=== PATIENT | male | born 1950 | race Caucasian/White ===

== ENCOUNTER 2018-09-12 09:27 | Inpatient (IN) | payer MEDICARE ==
[2018-09-11 15:02] LABS: BASOPHILS % 0.4 % (0.0-1.0); EOSINOPHILS # (AUTO) 0.1 (0.0-0.4); EOSINOPHILS % 0.7 % (0.0-6.0); HEMATOCRIT 41.7 % (38.2-49.6); HEMOGLOBIN 14.6 g/dL (14.0-18.0); LYMPHOCYTES # (AUTO) 0.6 (1.0-3.2); MEAN CORPUSCULAR HEMOGLOBIN 32.4 pg (28-32); MEAN CORPUSCULAR VOLUME 92.7 fL (81-99); MONOCYTES # (AUTO) 0.7 (0.2-0.8); MONOCYTES % 7.5 % (4.4-11.3); NEUTROPHILS # (AUTO) 7.8 (2.1-6.9); PLATELET COUNT 517 x10e3/uL (140-360); RED CELL DISTRIBUTION WIDTH 13.8 % (11.7-14.4)
[2018-09-11 15:15] LABS: INR 1.01; PROTHROMBIN TIME 14.2 seconds (11.9-14.5)
[2018-09-11 15:21] LABS: ALANINE AMINOTRANSFERASE 34 IU/L (0-55); ALBUMIN 4.3 g/dL (3.5-5.0); ALKALINE PHOSPHATASE 47 IU/L (40-150); ANION GAP 13.8 mmol/L (8-16); BLOOD UREA NITROGEN 12 mg/dL (7-26); BUN/CREATININE RATIO 13 (6-25); CALCIUM 9.4 mg/dL (8.4-10.2); CARBON DIOXIDE 30 mmol/L (22-29); CHLORIDE 91 mmol/L (98-107); EST GLOMERULAR FILTRATION RATE > 60 ML/MIN (60-); GLUCOSE 100 mg/dL (74-118); POTASSIUM 3.8 mmol/L (3.5-5.1); SODIUM 131 mmol/L (136-145)
[2018-09-12] VITALS (7 sets, daily range): BP systolic 115–153; BP diastolic 62–73
[~2018-09-12] VITALS: Ht 185.4 cm; Wt 109.3 kg
[~2018-09-12 09:27] MED LIST: ACETAMINOPHEN650 M3 PO; AMLODIPINE BESYL5 MG PO; ASPIR 8181 MG PO; HYDROCHLOROTHIA25 MG PO; LEVOTHYROXINE75 MCG PO
--- OUTSIDE RECORDS SUMMARY | 2018-09-12 09:30 | XMS REPORT ---
Author Author [facility] Address Unknown Phone Unavailable Care Team Providers Care Laundry Equipment Operator Name Role Phone Unavailable Unavailable Problems This patient has no known problems. Allergies, Adverse Reactions, Alerts This patient has no known allergies or adverse reactions. Medications This patient has no known medications. Encounters Start Date/Time End Date/Time Encounter Type Admission Type Attending [facility] Care Department Encounter ID 2019-04-10 00:00:00 2019-04-10 00:00:00 Outpatient [facility] [id number] 2018-11-01 00:00:00 2018-11-01 00:00:00 Outpatient [facility] [id number] 2018-10-04 00:00:00 2018-10-04 00:00:00 Outpatient [facility] [id number] 2018-08-29 12:36:43 2018-08-29 12:36:43 Outpatient [facility] [id number] 2018-08-29 11:56:32 2018-08-29 11:56:32 Outpatient [facility] [id number] 2018-08-19 00:00:00 2018-08-19 00:00:00 Outpatient [facility] [id number] 2018-08-02 00:00:00 2018-08-02 00:00:00 Outpatient [facility] [id number] 2018-08-01 11:11:20 2018-08-01 11:11:20 Outpatient [facility] [id number] 2018-07-26 08:37:24 2018-07-26 08:37:24 Outpatient [facility] [id number] 2018-07-19 00:00:00 2018-07-19 00:00:00 Outpatient [facility] [id number] 2018-05-28 14:49:16 2018-05-28 14:49:16 Outpatient [facility] [id number] 2018-05-23 09:43:07 2018-05-23 09:43:07 Outpatient [facility] [id number] 2018-04-23 15:10:19 2018-04-23 15:10:19 Outpatient [facility] [id number] 2018-04-12 09:44:50 2018-04-12 09:44:50 Outpatient [facility] [id number] 2018-04-11 09:29:30 2018-04-11 09:29:30 Outpatient [facility] [id number] 2018-03-06 14:54:35 2018-03-06 14:54:35 Emergency [facility] [id number] 2018-03-06 00:00:00 2018-03-06 00:00:00 Outpatient [facility] [id number] 2018-02-13 16:00:57 2018-02-13 16:00:57 Outpatient [facility] [id number] 2018-02-12 11:09:50 2018-02-12 11:09:50 Outpatient [facility] [id number] 2018-01-07 00:00:00 2018-01-07 00:00:00 Outpatient [facility] [id number] 2017-12-28 08:37:59 2017-12-28 08:37:59 Outpatient [facility] [id number] 2017-12-25 00:00:00 2017-12-25 00:00:00 Outpatient [facility] [id number] 2017-10-25 11:56:46 2017-10-25 11:56:46 Outpatient [facility] [id number] 2017-10-12 15:05:30 2017-10-12 15:05:30 Outpatient [facility] [id number] 2017-10-10 07:59:38 2017-10-10 07:59:38 Outpatient [facility] [id number] 2017-09-18 16:16:02 2017-09-18 16:16:02 Outpatient [facility] [id number] 2017-09-03 13:30:50 2017-09-03 13:30:50 Outpatient [facility] [id number] 2017-08-21 00:00:00 2017-08-21 00:00:00 Outpatient [facility] [id number] 2017-08-09 09:33:35 2017-08-09 09:33:35 Outpatient [facility] [id number] 2017-08-09 00:00:00 2017-08-09 00:00:00 Outpatient [facility] [id number] 2017-08-07 00:00:00 2017-08-07 00:00:00 Outpatient [facility] [id number] 2017-07-18 15:49:06 2017-07-18 15:49:06 Outpatient [facility] [id number] 2017-06-11 08:39:47 2017-06-11 08:39:47 Outpatient [facility] [id number] 2017-05-09 15:05:46 2017-05-09 15:05:46 Outpatient [facility] [id number] 2017-04-19 00:00:00 2017-04-19 00:00:00 Outpatient [facility] [id number] 2017-04-05 00:00:00 2017-04-05 00:00:00 Outpatient [facility] [id number] 2017-03-14 13:28:45 2017-03-14 13:28:45 Outpatient [facility] [id number] 2017-03-14 00:00:00 2017-03-14 00:00:00 Outpatient [facility] [id number] 2017-02-07 08:05:16 2017-02-07 08:05:16 Outpatient [facility] [id number] 2017-01-18 13:45:21 2017-01-18 13:45:21 Outpatient [facility] [id number] 2017-01-18 00:00:00 2017-01-18 00:00:00 Outpatient [facility] [id number] 2017-01-10 14:43:10 2017-01-10 14:43:10 Outpatient [facility] [id number] 2017-01-03 12:33:58 2017-01-03 12:33:58 Outpatient [facility] [id number] 2016-12-28 15:27:46 2016-12-28 15:27:46 Outpatient [facility] [id number]
--- OUTSIDE RECORDS SUMMARY | 2018-09-12 09:30 | XMS REPORT | Clinical Summary ---
Author Author [facility] Organization [facility] Address Unknown Phone Unavailable Care Team Providers Care Stamp Clerk Name Role Phone Kendell Nguyen MD PCP Christiana Melendez DDS 6 Allergies Comments Active Allergy Reactions Severity Noted Date Nortriptyline 03/06/2018 Medications End Date Status Medication Sig Dispensed Refills Start Date Active ASPIRIN 81 MG TAB take 1 tablet 0 (81 mg) by oral route once daily Active carbamide peroxide Instill 5 30 mL 0 (DEBROX) 6.5 % Drops in each 8 DropIndications: Impacted ear 2 times cerumen of right ear daily. Active loratadine (CLARITIN) 10 Take 1 tablet 90 tablet 1 mg tabletIndications: by mouth 8 Seasonal allergic daily Prn rhinitis due to pollen congestion. Active fluticasone (FLONASE) 50 Use 1 [place] 16 g 3 mcg/actuation nasal in each 8 sprayIndications: nostril daily Seasonal allergic Prn rhinitis due to pollen congestion. Active amLODIPine (NORVASC) 5 mg Take 1 tablet 90 tablet 2 tabletIndications: by mouth 8 Essential hypertension, daily. Issue of repeat prescription for medication 04/23/2019 Active hydroCHLOROthiazide Take 1 tablet 90 tablet 2 (HYDRODIURIL) 25 mg by mouth 8 tabletIndications: daily. Essential hypertension, Issue of repeat prescription for medication Active levothyroxine (SYNTHROID) Take 1 tablet 90 tablet 2 75 mcg tabletIndications: by mouth 8 Acquired hypothyroidism, every Issue of repeat morning, prescription for before medication breakfast. Active triamcinolone (TRIDERM) Apply to 80 g 3 0.1 % topical affected area 8 creamIndications: 2 times daily Varicose veins of both Prn itching. lower extremities, Issue of repeat prescription for medication Active amLODIPine (NORVASC) 2.5 Take 1 tablet 90 tablet 3 mg tabletIndications: by mouth 8 Essential hypertension daily along with 5 mg dose for HTN. Active ketoconazole (NIZORAL) 2 Apply to 120 mL 6 % shampooIndications: affected area 8 Seborrheic dermatitis of daily, as scalp needed for Itching. Active ketoconazole (NIZORAL) 2 Apply to 30 g 3 % topical affected area 9 creamIndications: Fungal 2 times dermatitis daily. 07/19/2018 Discontinued ketoconazole (NIZORAL) 2 Apply to 120 mL 6 % shampooIndications: affected area 7 Seborrheic dermatitis of daily, as scalp needed for Itching. 04/23/2018 Discontinued triamcinolone (TRIDERM) Apply to 80 g 3 0.1 % topical affected area 7 creamIndications: 2 times daily Varicose veins of both Prn itching. lower extremities 04/23/2018 Discontinued hydroCHLOROthiazide Take 1 tablet 90 tablet 2 (HYDRODIURIL) 25 mg by mouth 8 tabletIndications: daily. Essential hypertension 04/23/2018 Discontinued amLODIPine (NORVASC) 5 mg Take 1 tablet 90 tablet 2 tabletIndications: by mouth 8 Essential hypertension daily. 04/23/2018 Discontinued levothyroxine (SYNTHROID) Take 1 tablet 90 tablet 2 75 mcg tabletIndications: by mouth 8 Acquired hypothyroidism every morning, before breakfast. 08/29/2018 Discontinued ketoconazole (NIZORAL) 2 Apply to 30 g 3 % topical affected area 8 creamIndications: Fungal 2 times dermatitis daily. 09/18/2017 Discontinued amoxicillin-clavulanate Take 1 tablet 14 tablet 0 (AUGMENTIN) 875-125 mg by mouth 2 8 per tabletIndications: times daily Cellulitis and abscess of for 7 days. leg, except foot 04/23/2018 Discontinued cadexomer iodine Apply to 40 g 2 (IODOSORB) 0.9 % topical affected area 8 gelIndications: Venous daily as ulcer of right lower needed for extremity with varicose Wound Care. veins 07/19/2018 Discontinued amLODIPine (NORVASC) 2.5 Take 1 tablet 90 tablet 3 10/25/201 mg tabletIndications: by mouth 8 Essential hypertension daily along with 5 mg dose for HTN. 01/02/2018 predniSONE (DELTASONE) 50 Take 1 tablet 5 tablet 0 12/28/201 mg tabletIndications: by mouth 8 Acute serous otitis media daily for 5 of left ear, recurrence days. not specified 08/29/2018 Discontinued ciclopirox (PENLAC) 8 % Apply to the 0 external solution affected toe nails as directed . Active Problems Problem Noted Date Prediabetes 08/29/2018 Seborrheic dermatitis of scalp 07/19/2018 Exercise counseling for Above Normal BMI Only! 04/23/2018 Occult blood positive stool 02/16/2018 Benign non-nodular prostatic hyperplasia without lower urinary tract 05/19/2016 symptoms Facial abscess 05/15/2016 Chronic pain of right heel 09/01/2015 Callus 07/09/2015 Onychomycosis 07/09/2015 BMI 29.0-29.9,adult 03/02/2015 Dietary counseling 03/02/2015 Asymptomatic varicose veins 01/11/2015 Fracture of toe 06/02/2014 Gingivitis 05/04/2014 Dental examination 08/26/2013 Gingival recession 06/06/2013 Periodontitis 04/11/2013 Varicose veins of both lower extremities 01/16/2013 Nasal obstruction 03/20/2011 Cerumen impaction 03/20/2011 Hearing loss 03/20/2011 Acquired deviated nasal septum 03/20/2011 Elevated fasting blood sugar 01/17/2011 Nasal septal deviation 12/01/2010 Chronic pain 10/04/2009 Hypothyroidism 10/03/2006 HTN (hypertension) 07/05/2006 Drug side effects Overview: nortriptyline Encounters Care Team Description Date Type Specialty Kendell Nguyen MD Essential hypertension (Primary Dx); Fungal dermatitis; Acquired hypothyroidism; Benign non-nodular prostatic hyperplasia without lower urinary tract symptoms; Varicose veins of both lower extremities, unspecified whether complicated; Prediabetes 08/29/2018 Office Visit Family Practice 08/29/2018 Travel Katerine Mabry NP Otalgia of left ear (Primary Dx); Dietary counseling for Above / Below Normal BMI; Exercise counseling for Above Normal BMI Only!; Impacted cerumen of left ear 07/26/2018 Office Visit Family Practice Kendell Nguyen MD Essential hypertension (Primary Dx); Seborrheic dermatitis of scalp; Acquired hypothyroidism; Varicose veins of both lower extremities, unspecified whether complicated 07/19/2018 Office Visit Family Practice 07/19/2018 Travel Kendell Nguyen MD 05/28/2018 Ancillary Radiology Procedure Arabella Villagran MD Arthralgia of left lower leg (Primary Dx) 05/23/2018 Office Visit Physical Medicine and Rehab Kendell Nguyen MD Essential hypertension (Primary Dx); Dietary counseling for Above / Below Normal BMI; Exercise counseling for Above Normal BMI Only!; Acquired hypothyroidism; Varicose veins of both lower extremities; Occult blood positive stool; Issue of repeat prescription for medication 04/23/2018 Office Visit Family Practice Phillip Padilla OT Varicose veins of both lower extremities (Primary Dx) 04/12/2018 Therapy Occupational Therapy Arabella Villagran MD Chronic pain of left knee (Primary Dx) 04/11/2018 Office Visit Physical Medicine and Rehab Delvis Olea MD Varicose vein of scrotum (Primary Dx) 03/06/2018 Emergency Emergency Medicine Kacie Man RN 03/05/2018 Nurse Triage Kendell Nguyen MD Occult blood positive stool (Primary Dx) 02/16/2018 Orders Only Family Practice Kendell Nguyen MD Screen for colon cancer 02/13/2018 Orders Only [facility] Kendell Nguyen MD Essential hypertension (Primary Dx); Acquired hypothyroidism; Varicose veins of both lower extremities; Screen for colon cancer; Seborrheic dermatitis, unspecified; Seasonal allergic rhinitis due to pollen 02/12/2018 Office Visit Family Practice Shahram Escudero MD Impacted cerumen of right ear (Primary Dx); Acute serous otitis media of left ear, recurrence not specified 12/28/2017 Office Visit Family Practice Maddie Sadler, RN 12/27/2017 Nurse Triage Kendell Nguyen MD Essential hypertension (Primary Dx) 10/25/2017 Office Visit Family Practice Michelle Mello OT [place], [place], OT Varicose veins of both lower extremities (Primary Dx) 10/12/2017 Therapy Occupational Therapy Dana Goss PT Varicose veins of both lower extremities (Primary Dx) 10/10/2017 Therapy Physical Therapy Kendell Nguyen MD Essential hypertension (Primary Dx); Varicose veins of both lower extremities; Venous ulcer of right lower extremity with varicose veins 09/18/2017 Office Visit Family Practice after 09/11/2017 Immunizations Name Dates Previously Given Next Due Influenza <Unspecified> 05/23/2018, 04/24/2017 Influenza Vaccine 05/15/2016, 05/15/2014, 06/20/2012 PPV 23 Pneumococcal 05/15/2016 Polysaccaride Pneumococcal 13-valent 03/02/2015 conj 0.5 mL injection Tdap Tetanus, diphtheria, 05/15/2014 acellular pertussis Vaccine Family History Medical History Relation Name Comments Cancer Father Pulmonary Father Heart Mother Hypertension Mother Stroke Mother Hypothyroid Sister Relation Name Status Comments Brother Alive Brother Alive Brother Brother Father Maternal Grandfather Maternal Grandmother Mother Paternal Grandfather Paternal Grandmother Sister Alive Sister Social History Date Tobacco Use Types Packs/Day Years Used Former Smoker Smokeless Tobacco: Never Used Tobacco Cessation: Counseling Given: No Alcohol Use Drinks/Week oz/Week Comments No 0 Standard 0.0 drinks or equivalent Sex Assigned at Date Recorded Not on file Industry Job Start Date Occupation Not on file Not on file Not on file Travel End Travel History Travel Start No recent travel history available. Last Filed Vital Signs Time Taken Vital Sign Reading 08/29/2018 11:59 AM [facility] Blood Pressure 142/66 08/29/2018 11:59 AM [facility] Pulse 60 08/29/2018 11:59 AM [facility] Temperature 37 C (98.6 F) 08/29/2018 11:59 AM [facility] Respiratory Rate 18 03/06/2018 3:35 PM CDT Oxygen Saturation 95% - Inhaled Oxygen - Concentration 08/29/2018 11:59 AM [facility] Weight 112.9 kg (249 lb) 08/29/2018 11:59 AM [facility] Height 188 cm (6' 2") 08/29/2018 11:59 AM [facility] Body Mass Index 31.97 Plan of Treatment Care Team Description Date Type Specialty Michelle Mello OT OCCUPATIONAL THERAPY [facility] 10/04/2018 Therapy Occupational Therapy [facility]agran [facility] [address] [place] [address] [phone] 1 year f/u 04/10/2019 Office Visit Physical Medicine and Rehab Health Maintenance Due Date Last Done Comments Colonoscopy 5yr 06/19/2023 06/19/2018 (Previously completed - External) IMM Pneumococcal Age 65 Completed 05/15/2015 and Up IMM Influenza Seasonal Completed 05/23/2018, 04/24/2017 Oct to October (>/=19 yrs) Procedures Comments Procedure Name Priority Date/Time Associated Diagnosis PSA Routine 08/29/2018 Benign non-nodular 12:34 PM [facility] prostatic hyperplasia without lower urinary tract symptoms CBC/DIFF Routine 08/01/2018 Essential hypertension 11:04 AM [facility] TSH Routine 08/01/2018 Acquired hypothyroidism 11:04 AM [facility] HEMOGLOBIN A1C Routine 08/01/2018 Essential hypertension 11:04 AM [facility] LIVER PROFILE Routine 08/01/2018 Essential hypertension 11:04 AM [facility] BASIC METABOLIC PANEL Routine 08/01/2018 Essential hypertension 11:04 AM [facility] LIPID PROFILE Routine 08/01/2018 Essential hypertension 11:04 AM [facility] XRAY HIP BILATERAL 2 Routine 05/28/2018 Arthralgia of left lower VIEWS AND AP PELVIS 3:02 PM CDT leg XRAY KNEE 3 VIEWS Routine 05/28/2018 Arthralgia of left lower (ROUTINE W/ WT BEARING 3:02 PM CDT leg AP/LAT/SUN) OCCULT BLOOD ICT Routine 02/13/2018 Screen for colon cancer 3:55 PM CDT after 09/11/2017 Results * PSA (08/29/2018 12:34 PM [facility]) PSA 1.54 <4.1 ng/mL BT MAIN-STATION 1 Specimen Blood Performing Organization Address City/State/Zipcode Phone Number [facility]IN-ST[facility] 1 * HEMOGLOBIN A1C (08/01/2018 11:04 AM [facility]) Hemoglobin A1c 5.8 4.3 - 6.1 % BT DIAGNOSTIC IMMUNOLOGY Est Average 119.8 mg/dL BT DIAGNOSTIC Gluc IMMUNOLOGY Specimen Blood Performing Organization Address [facility] Phone Number [facility] * TSH (08/01/2018 11:04 AM [facility]) TSH 2.43 0.57 - 3.74 uIU/mL BT MAIN-STATION 1 Specimen Blood Performing Organization Address [facility] Phone [facility] * LIVER PROFILE (08/01/2018 11:04 AM [facility]) T Protein 6.4 6.0 - 8.3 g/dL BT MAIN-STATION 1 Albumin 4.3 4.2 - 5.5 g/dL BT MAIN-STATION 1 T Bilirubin 0.9 0.2 - 1.2 mg/dL BT MAIN-STATION 1 Alk Phos 55 34 - 104 U/L BT MAIN-STATION 1 AST 20 13 - 39 U/L BT MAIN-STATION 1 ALT 23 7 - 52 U/L BT MAIN-STATION 1 D Bilirubin 0.2 0.0 - 0.2 mg/dL BT MAIN-STATION 1 Specimen Blood Performing Organization Address [facility] Phone Number [facility] * LIPID PROFILE (08/01/2018 11:04 AM [facility]) Cholesterol 137 mg/dL BT [facility]ATION Comment: 1 REFERENCE RANGE: Desirable: <200 mg/dL Borderline: 200-240 mg/dL High Risk: >240 mg/dL Triglyceride 69 <150 mg/dL BT MAIN-STATION Comment: 1 REFERENCE RANGE: Normal: <150 mg/dL Borderline High: 150-199 mg/dL High: 200-499 mg/dL Very High: >jq=695 mg/dL HDL 56 mg/dL BT MAIN-STATION Comment: 1 Increased CHD risk: <40 mg/dL Decreased CHD risk: >60 mg/dL LDL 67 mg/dL BT MAIN-STATION Comment: 1 REFERENCE RANGE: Optimal: <100 mg/dL Near Optimal: 100-129 mg/dL Borderline High: 130-159 mg/dL High: 160-189 mg/dL Very High: >gn=563 mg/dL Specimen Blood Performing Organization Address [facility]/Zipcode Phone Number [facility] BT MAIN-STATION 1 * CBC/DIFF (08/01/2018 11:04 AM [facility]) WBC 7.7 4.5 - 12.0 K/uL BT MAIN-STATION 2 RBC 4.44 (L) 4.60 - 6.20 M/uL BT MAIN-STATION 2 Hemoglobin 14.1 14.0 - 18.0 g/dL BT MAIN-STATION 2 Hematocrit 42.6 40.0 - 54.0 % BT MAIN-STATION 2 MCV 96 (H) 82 - 92 fL BT MAIN-STATION 2 MCH 31.8 (H) 27.0 - 31.0 pg BT MAIN-STATION 2 MCHC 33.1 32.0 - 36.0 g/dL BT MAIN-STATION 2 RDW 48.9 (H) 35.1 - 43.9 fL BT MAIN-STATION 2 Platelet 511 (H) 150 - 400 K/uL BT MAIN-STATION 2 Mean Platelet 10.3 9.4 - 12.4 fL BT MAIN-STATION Volume 2 Percent NRBC 0.0 BT MAIN-STATION 2 Absolute NRBC 0.00 BT MAIN-STATION 2 Neutrophil 79.1 (H) 34.0 - 67.9 % BT MAIN-STATION 2 Lymphocyte 9.2 (L) 21.8 - 50.0 % BT MAIN-STATION 2 Monocyte 8.7 5.3 - 12.0 % BT MAIN-STATION 2 Eosinophil 2.3 0.8 - 5.0 % BT MAIN-STATION 2 Basophil 0.4 0.2 - 1.2 % BT MAIN-STATION 2 Pct Immat Gran 0.3 0.0 - 0.5 BT MAIN-STATION 2 Neutrophil, Abs 6.11 (H) 1.78 - 5.36 K/uL BT MAIN-STATION 2 Lymphocyte, Abs 0.71 (L) 1.32 - 3.57 K/uL BT MAIN-STATION 2 Monocyte, Abs 0.67 0.30 - 0.82 K/uL BT MAIN-STATION 2 Eosinophil, Abs 0.18 0.04 - 0.54 K/uL BT MAIN-STATION 2 Basophil, Abs 0.03 0.01 - 0.08 K/uL BT MAIN-STATION 2 Absol Immat 0.02 0.00 - 0.03 K/uL BT MAIN-STATION Gran 2 Specimen Blood Performing Organization Address City/State/Zipcode Phone Number [facility] 2 * BASIC METABOLIC PANEL (08/01/2018 11:04 AM [facility]) CO2 32 (H) 21 - 31 mmol/L BT MAIN-STATION 1 Chloride 93 (L) 98 - 107 mmol/L BT MAIN-STATION 1 Potassium 4.5 3.5 - 5.1 mmol/L BT MAIN-STATION 1 Sodium 135 (L) 136 - 145 mmol/L BT MAIN-STATION 1 Glucose 95 70 - 110 mg/dL BT MAIN-STATION 1 Urea Nitrogen 16 7 - 25 mg/dL BT MAIN-[facility]ATION 1 Creatinine 0.90 0.7 - 1.3 mg/dL BT MAIN-STATION 1 Anion Gap 10 BT MAIN-STATION 1 Calcium 9.4 8.6 - 10.3 mg/dL BT MAIN-STATION 1 GFR, Estimated >60 mL/min/1.73 m2 BT MAIN-STATION 1 GFR, Estim, >60 mL/min/1.73 m2 BT MAIN-STATION Afr-Am 1 Specimen Blood Performing Organization Address City/State/Zipcode Phone Number [facility]IN-ST[facility] 1 * XRAY HIP BILATERAL 2 VIEWS AND AP PELVIS (05/28/2018 3:02 PM CDT) Impressions Performed At IMPRESSION:Mild degenerative changes in the bilateral hip joints, SMS lower lumbar spine and left sacroiliac joint. Dictated By: Soco Mcdaniel MD, 05/28/2018 3:19 PM I have reviewed the study and agree with the findings in this report. Signed By: Abdulkadir Briggs MD, 05/28/2018 4:32 PM Narrative Performed At EXAM: XR BILATERAL HIP 3 VIEWS [facility] DATE:05/28/2018 3:02 PM INDICATION: left hip area or SI joint area pain-- exma not helpful --no trauma. Arthralgia of left lower leg COMPARISON: None TECHNIQUE: 3 views of the bilateral hips including the pelvis DISCUSSION: Mild degenerative changes in the bilateral hip joints, lower lumbar spine and left sacroiliac joint. No acute fracture or malalignment is identified. No soft tissue abnormality is identified. Procedure Note Interface, Rad/Mammog In - 05/28/2018 4:38 PM CDT EXAM: XR BILATERAL HIP 3 VIEWS DATE: 05/28/2018 3:02 PM INDICATION: left hip area or SI joint area pain-- exma not helpful --no trauma. Arthralgia of left lower leg COMPARISON: None TECHNIQUE: 3 views of the bilateral hips including the pelvis DISCUSSION: Mild degenerative changes in the bilateral hip joints, lower lumbar spine and left sacroiliac joint. No acute fracture or malalignment is identified. No soft tissue abnormality is identified. IMPRESSION IMPRESSION: Mild degenerative changes in the bilateral hip joints, lower lumbar spine and left sacroiliac joint. Dictated By: Soco Mcdaniel MD, 05/28/2018 3:19 PM I have reviewed the study and agree with the findings in this report. Signed By: Abdulkadir Briggs MD, 05/28/2018 4:32 PM Performing Organization Address City/State/Zipcode Phone Number SMS * XRAY KNEE 3 VIEWS (ROUTINE W/ WT BEARING AP/LAT/SUN) (05/28/2018 3:02 PM CDT) Impressions Performed At IMPRESSION: SMS 1. Kellgren-Herber Grade 2 osteoarthrosis. 2. No other bony abnormality. Dictated By: Soco Mcdaniel MD, 05/28/2018 3:17 PM I have reviewed the study and agree with the findings in this report. Signed By: Abdulkadir Briggs MD, 05/28/2018 4:32 PM Narrative Performed At EXAM: XR LEFT KNEE 3 VIEWS [facility] DATE:05/28/2018 3:02 PM INDICATION: left knee medial pain just pain with flexion -exam not helpful. Arthralgia of left lower leg COMPARISON: None TECHNIQUE: 3 radiographs of the knee FINDINGS:No fracture, dislocation or other acute bony abnormality is identified. There is no osteophyte formation. There is narrowing of the medial compartment. No knee joint effusion is identified. No soft tissue abnormality is identified. Procedure Note Interface, Rad/Mammog In - 05/28/2018 4:37 PM CDT EXAM: XR LEFT KNEE 3 VIEWS DATE: 05/28/2018 3:02 PM INDICATION: left knee medial pain just pain with flexion -exam not helpful. Arthralgia of left lower leg COMPARISON: None TECHNIQUE: 3 radiographs of the knee FINDINGS: No fracture, dislocation or other acute bony abnormality is identified. There is no osteophyte formation. There is narrowing of the medial compartment. No knee joint effusion is identified. No soft tissue abnormality is identified. IMPRESSION IMPRESSION: 1. Kellgren-Herber Grade 2 osteoarthrosis. 2. No other bony abnormality. Dictated By: Soco Mcdaniel MD, 05/28/2018 3:17 PM I have reviewed the study and agree with the findings in this report. Signed By: Abdulkadir Briggs MD, 05/28/2018 4:32 PM Performing Organization Address City/State/Zipcode Phone Number SMS * OCCULT BLOOD ICT (02/13/2018 3:55 PM CDT) Occult Blood Positive (A) [facility] ICT Specimen Stool Performing Organization Address City/State[facility] Phone Number [facility] after 09/11/2017 Insurance Type Payer Benefit Subscriber ID Effective Phone Address Plan / Dates Group [facility] xxxxxxxxx 2017-P [phone] [address] MEDICARE resent [id number] [place] [address] [place] MEDICA[place] [id number] xxxxxxxxx 2014-P [phone] QUAL[address] resent [id number] MEDICARE [place], [place] BENEFICIAR [id number] Y
[2018-09-12] MEDS ORDERED: MIDAZOLAM HCL 2 MG/2 ML VIAL ONE ×3 (12:26→16:24)
[2018-09-12] MEDS ORDERED: FENTANYL CITRATE/PF 100MCG/2 ML INJ ONE ×2 (12:26→16:24)
[2018-09-12] MEDS ORDERED: IOPAMIDOL 300MG/ML 100 ML INFUS..BTL IV ONE ×3 (12:27→16:15)
[2018-09-12] MEDS ORDERED: LIDOCAINE HCL 1% LOCAL INJ 20 ML VIAL ONE (12:27)
[2018-09-12] MEDS ORDERED: HEPARIN SOD/SOD CHLORIDE 2,000 ML ONE (12:27)
[2018-09-12] MEDS ORDERED: SODIUM CHLORIDE 0.9% 1000ML 1,000 ML ONE ×2 (12:27→15:55)
--- NOTE | 2018-09-12 14:45 | NUR ---
bedside report received from Zainab Hoang RN. Alert oriented and appropriate, PERRLA, respirations even and unlabored on procedural table, 2L/NC. Pulses reported as Doppler to Right DP/PT, and palpable Left DP/PT patient draped in sterile fashion with procedure under away . IV 20g to left forearm per replot. presents healthy w/o s/s of infiltration or complaint. Urinal currently in position. No personal affects with patient. Family in waiting room. P Review of medications, anticoagulants given, ACT . Hypercapnia monitoring initiated. -cgf
[2018-09-12] MEDS ORDERED: HEPARIN SOD (PORCINE) 1000 UNIT/ML 30ML ONE (15:25)
[2018-09-12] MEDS ORDERED: VERAPAMIL HCL 2.5 MG/ML 2 ML VIAL ONE (15:55)
[2018-09-12] MEDS ORDERED: NITROGLYCERIN/D5W 200 MCG/ML 250 ML ONE (15:55)
[2018-09-12] MEDS ORDERED: HEPARIN SOD/SOD CHLORIDE 1,000 ML ONE (16:06)
[2018-09-12] MEDS ORDERED: CLOPIDOGREL BISULFATE 75 MG TAB ONE (17:26)
[2018-09-12] MEDS ORDERED: MORPHINE SULFATE 2 MG/ML SYR 1ML IV PRN (18:45)
[2018-09-12] MEDS: SODIUM CHLORIDE 0.9% 1000ML 1,000 ML IV SCH (18:45)
[2018-09-12] MEDS ORDERED: HYDROCODONE/APAP 5MG-325MG TAB PO PRN (18:45)
--- NOTE | 2018-09-12 21:55 | NUR ---
AFTER INTERMITTENT TIMES WITHDREW 1 CC OF AIR AT A TIME FROM TR BAND TO RLE. AND AT THIS TIME TR BAND CAN AND WAS REMOVED. NO BLEEDING TO SITE. COVERED WITH SMALL DRESSING. PATIENT TOLERATED WELL
[2018-09-12] MEDS: MORPHINE SULFATE INJ 4 MG/ML INJ 1ML IV PRN (22:10)
[2018-09-13] VITALS (11 sets, daily range): BP systolic 95–148; BP diastolic 43–95
[2018-09-13] MEDS: MORPHINE SULFATE INJ 4 MG/ML INJ 1ML IV PRN (02:00)
[2018-09-13] MEDS: SODIUM CHLORIDE 0.9% 1000ML 1,000 ML IV SCH (04:59)
--- NOTE | 2018-09-13 07:00 | NUR ---
PATIENT RECEIVED AWAKE, ALERT AND OX4. RESPIRATIONS ARE EVEN AND UNLABORED. DENIES ANY PAIN OR DISCOMFORT. LEFT GROIN GAUZE DRESSING IS DRY AND INTACT. PEDAL PULSES ARE WEAK BILATERALLY, BUT PALPABLE. BILATERAL LOWER EXTREMITIES ARE PINK AND WARM. V/S ARE STABLE.
--- NOTE | 2018-09-13 08:15 | NUR ---
DR. CABRAL HERE TO SEE PATIENT
[2018-09-13 08:42] LABS: HEMATOCRIT 40.6 % (38.2-49.6); HEMOGLOBIN 14.2 g/dL (14.0-18.0)
[2018-09-13] MEDS ORDERED: CLOPIDOGREL BISULFATE 75 MG TAB PO SCH (09:00)
[2018-09-13 09:01] LABS: BLOOD UREA NITROGEN 12 mg/dL (7-26); BUN/CREATININE RATIO 14 (6-25); CALCIUM 8.6 mg/dL (8.4-10.2); CARBON DIOXIDE 28 mmol/L (22-29); CHLORIDE 95 mmol/L (98-107); CREATININE, SERUM 0.83 mg/dL (0.72-1.25); EST GLOMERULAR FILTRATION RATE > 60 ML/MIN (60-); GLUCOSE 136 mg/dL (74-118); SODIUM 132 mmol/L (136-145)
--- NOTE | 2018-09-13 10:14 | Operative Report ---
DATE OF PROCEDURE: CARDIOLOGY PROCEDURE NOTE PREPROCEDURE DIAGNOSIS: Peripheral arterial disease with ulcerations. POSTPROCEDURE DIAGNOSIS: Peripheral arterial disease with ulcerations. PROCEDURES PERFORMED: 1. Conscious sedation 180 minutes. 2. Abdominal aortography. 3. Third-order peripheral angiography of the right lower extremity. 4. Ultrasound-guided arterial access. 5. Primary thrombectomy. 6. Orbital atherectomy and percutaneous transluminal angioplasty of the right posterior tibial artery. 7. Percutaneous transluminal angioplasty of the right superficial femoral artery. ESTIMATED BLOOD LOSS: 30 mL. SPECIMENS REMOVED: None. PROCEDURE DETAILS: After informed consent was obtained, the patient was brought to the cardiac catheterization laboratory in a fasting, nonsedated state. Bilateral groins were prepped and draped in usual sterile fashion. Lidocaine 2% was infiltrated over the left anterior groin for local anesthesia. Using a micropuncture needle, the left common femoral artery is accessed via the modified Seldinger technique, and a 5-Nicaraguan sheath was placed. Next, abdominal aortography was performed using an Omniflush catheter. Next, this same catheter was used to cross up and over the iliac bifurcation and tracked over an Advantage Glidewire and placed in the third-order peripheral angiography position, and diagnostic angiography of the right lower extremity showed a 100% chronic total occlusion of the mid superficial femoral artery and a severe long tubular stenosis of the right posterior tibial artery. A decision was made to attempt percutaneous coronary intervention in the antegrade fashion. A 45 cm sheath was then crossed and exchanged out. Patient received systemic heparin for therapeutic anticoagulation. Using an 0.14 microcatheter, I attempted to cross the proximal cap of the SFA FLAT SCREEN WORKER with multiple wires without success. Next, I chose to attempt intervention in a retrograde fashion from the pedal position. Using ultrasound guidance, the right posterior tibial was accessed via the modified Seldinger technique and a 6-Nicaraguan Glidesheath was placed. Next, using an 0.14 CXI catheter, I attempted to cross multiple wires including a Whisper, Command, and Astato 20 wire into the true lumen proximally, however, this was met with great difficulty. I then tracked the Command wire in a dissection plane just distal to the proximal cap of the FLAT SCREEN WORKER. While leaving another microcatheter in the up-and-over approach, I used a OUTBACK device to re-enter the true lumen proximally to the FLAT SCREEN WORKER with externalization of the Command wire. The OUTBACK catheter was backed out. I then exchanged out true lumen to true lumen in the antegrade approach with the same microcatheter with placement of a ViperWire. I then performed balloon angioplasty of the SFA to provide room for placement of the Diamondback catheter distally. I then tracked out a 1.25 Diamondback bur to the posterior tibial and performed orbital atherectomy. Next, I performed balloon angioplasty of the posterior tibial with a 3-mm balloon. Final results here showed brisk antegrade flow distally. I then performed balloon angioplasty of the superficial femoral artery with a 7 x 2.20 Lutonix drug-coated balloon with excellent angioplasty results. The sheath was removed and hemostasis will be achieved via manual pressure. Patient tolerated the procedure well with no immediate complications, transferred back to his room in stable condition. RECOMMENDATIONS: 1. Dual antiplatelet therapy for 3 months. 2. Patient will need to be brought back for left lower extremity peripheral intervention. Job#: [id number]
[2018-09-13] MEDS ORDERED: PLAVIX75 MG PO (11:25)
--- NOTE | 2018-09-13 12:45 | NUR ---
LAST SET OF VITAL SIGNS: B/P 134/65; P-66; R-20; T-98.7(0) PRIOR TO BEING DISCHARGED. DENIES ANY PAIN OR DISCOMFORT AND SAYS HE'S READY TO GO HOME.
--- NOTE | 2018-09-13 12:52 | NUR ---
PATIENT TAKEN VIA WHEELCHAIR TO [facility] FOR [facility] TO BE DISCHARGED HOME AND BEING PICKED UP BY ELIUD (NIECE). LEFT ARM IV REMOVED PRIOR TO D/C AND LEFT GROIN SITE IS HEMATOMA FREE AND NO BLEEDING TO SITE. ALL EXTREMITIES ARE PINK AND WARM AND WEAK PEDAL PULSES TO LOWER EXTREMITIES. V/S ARE STABLE. VERBAL AND WRITTEN INSTRUCTIONS GIVEN TO PATIENT AND PATIENT SIGNED D/C PAPERS AND WAS ALLOWED TO ASK QUESTIONS WELL. PHARMACY ALSO HERE TO GIVE VERBAL INSTRUCTIONS.
== END 2018-09-13 12:15 | disposition home or self-care (01) | DRG 271 ==
LOC: CATH LAB 09:27 → ICU 17:25
PROVIDERS: ADMIT Internal Medicine Cardiovascular Disease; ATTEND Internal Medicine Cardiovascular Disease
PROC: 047K341 Dilation of Right Femoral Artery with Drug-eluting Intraluminal Device, using Drug-Coated Balloon, Percutaneous Approach (ICD-10-PCS; principal; 2018-09-13)
PROC: 04CR3ZZ Extirpation of Matter from Right Posterior Tibial Artery, Percutaneous Approach (ICD-10-PCS; 2018-09-13)
PROC: 047R3ZZ Dilation of Right Posterior Tibial Artery, Percutaneous Approach (ICD-10-PCS; 2018-09-13)
PROC: B41D1ZZ Fluoroscopy of Aorta and Bilateral Lower Extremity Arteries using Low Osmolar Contrast (ICD-10-PCS; 2018-09-13)
DX: I77.89 Other specified disorders of arteries and arterioles (principal); L97.818 Non-pressure chronic ulcer of other part of right lower leg with other specified severity; I73.9 Peripheral vascular disease, unspecified; F17.210 Nicotine dependence, cigarettes, uncomplicated; I10 Essential (primary) hypertension; I87.2 Venous insufficiency (chronic) (peripheral)
CPT/HCPCS: 36415; 37224; 37228; 37229; 75625; 75710; 80048; 80053; 85014; 85018; 85025; 85610; C1724; C1725; C1766; C1769; C2623; J1644; J2001; J2250; J2270; J7030; Q9967

== ENCOUNTER → 2018-10-24 | Day surgery (SDC) | payer MEDICARE ==
[2018-10-23 15:12] LABS: BASOPHILS % 0.4 % (0.0-1.0); EOSINOPHILS # (AUTO) 0.1 (0.0-0.4); EOSINOPHILS % 0.9 % (0.0-6.0); HEMATOCRIT 44.7 % (38.2-49.6); HEMOGLOBIN 15.6 g/dL (14.0-18.0); LYMPHOCYTES # (AUTO) 0.6 (1.0-3.2); LYMPHOCYTES % 7.5 % (18.0-39.1); MEAN CORPUSCULAR HEMOGLOBIN 32.6 pg (28-32); MEAN CORPUSCULAR HGB CONC 34.9 g/dL (31-35); MEAN CORPUSCULAR VOLUME 93.5 fL (81-99); MONOCYTES # (AUTO) 0.7 (0.2-0.8); MONOCYTES % 8.6 % (4.4-11.3); NEUTROPHILS # (AUTO) 6.7 (2.1-6.9); PLATELET COUNT 484 x10e3/uL (140-360); RED BLOOD COUNT 4.78 x10e6/uL (4.3-5.7); RED CELL DISTRIBUTION WIDTH 12.9 % (11.7-14.4)
[2018-10-23 15:22] LABS: INR 0.96; PROTHROMBIN TIME 13.3 seconds (11.9-14.5)
[2018-10-23 15:30] LABS: ALANINE AMINOTRANSFERASE 25 IU/L (0-55); ALBUMIN 4.4 g/dL (3.5-5.0); ALBUMIN/GLOBULIN RATIO 1.5 (0.8-2.0); ALKALINE PHOSPHATASE 55 IU/L (40-150); ANION GAP 12.1 mmol/L (8-16); BLOOD UREA NITROGEN 15 mg/dL (7-26); BUN/CREATININE RATIO 15 (6-25); CARBON DIOXIDE 32 mmol/L (22-29); CHLORIDE 91 mmol/L (98-107); CREATININE, SERUM 0.99 mg/dL (0.72-1.25); EST GLOMERULAR FILTRATION RATE > 60 ML/MIN (60-); GLUCOSE 102 mg/dL (74-118); POTASSIUM 4.1 mmol/L (3.5-5.1); SODIUM 131 mmol/L (136-145)
[~2018-10-24] VITALS: Ht 186.7 cm; Wt 108.9 kg
[2018-10-24] VITALS (20 sets, daily range): BP systolic 113–174; BP diastolic 55–122
[~2018-10-24] MED LIST changes: +ALCLOMETASONE TOP; +ATROPINE SULFATE 0.1 MG/ML 10ML SYR ONE; +CLOTRIMAZOLE15 GM TOP; +CRANBERRY TABL1 EACH PO; +FENTANYL CITRATE/PF 100MCG/2 ML INJ ONE; +HEPARIN SOD (PORCINE) 1000 UNIT/ML 30ML ONE; +HEPARIN SOD/SOD CHLORIDE 2,000 ML ONE; +HYDROCODONE/APAP 5MG-325MG TAB ONE; +IOPAMIDOL 300MG/ML 100 ML INFUS..BTL IV ONE; +KETOCONAZOLE120 ML TOP; +KETOCONAZOLE15 GM TOP; +LIDOCAINE HCL 2% LOCAL 20 ML VIAL ONE; +MIDAZOLAM HCL 2 MG/2 ML VIAL ONE; +NAPROXEN250 MG PO; +NITROGLYCERIN/D5W 200 MCG/ML 250 ML ONE; +ONE DAILY MULT1 EAC1 PO; +PLAVIX75 MG PO; +SILVER SULFADIAZINE TOP; +SODIUM CHLORIDE 0.9% 1000ML 1,000 ML ONE; +TRIAMCINOLONE A15 G1 TOP
--- OUTSIDE RECORDS SUMMARY | 2018-10-24 06:10 | XMS REPORT | Clinical Summary ---
Author Author [facility] Organization [facility] Address Unknown Phone Unavailable Care Team Providers Care Supervisor Microwave Name Role Phone Kendell Nguyen MD PCP [...] congestion. Active fluticasone (FLONASE) 50 Use 1 [place] 16 g 3 mcg/actuation nasal in each [...] 8 creamIndications: Fungal 2 times dermatitis daily. 04/23/2018 Discontinued cadexomer iodine Apply to 40 [...] 50 Take 1 tablet 5 tablet 0 05/25/201 mg tabletIndications: by mouth 8 Acute serous [...] Encounters Care Team Description Date Type Specialty Michelle Mello OT Varicose veins of both lower extremities, unspecified whether complicated (Primary Dx) 10/14/2018 Therapy Occupational Therapy 10/14/2018 Travel Lauren Patterson Consult (outside consult---podiatry--------message rec'd from [facility]); Consult (outside consult to ENT); Consult (outside consult to Varicose veins and heart ) 09/30/2018 Telephone Family Practice Kendell Nguyen MD Essential hypertension [...] Screen for colon cancer 02/13/2018 Orders Only Family Practice Kendell Nguyen MD Essential hypertension (Primary Dx); Acquired hypothyroidism; Varicose veins of both lower extremities; Screen for colon cancer; Seborrheic dermatitis, unspecified; Seasonal allergic rhinitis due to pollen 02/12/2018 Office Visit Family Practice Shahram Escudero MD Impacted cerumen of right ear (Primary Dx); Acute serous otitis media of left ear, recurrence not specified 12/28/2017 Office Visit Family Practice Maddie Sadler RN 12/27/2017 Nurse Triage Kendell Nguyen MD Essential hypertension (Primary Dx) 10/25/2017 Office Visit Family Practice after 10/23/2017 Immunizations Name Dates Previously Given Next Due [...] Taken Vital Sign Reading 08/29/2018 11:59 AM PLACEMENT DIRECTOR Blood Pressure 142/66 08/29/2018 11:59 AM PLACEMENT DIRECTOR Pulse 60 08/29/2018 11:59 AM PLACEMENT DIRECTOR Temperature 37 C (98.6 F) 08/29/2018 11:59 AM PLACEMENT DIRECTOR Respiratory Rate 18 03/06/2018 3:35 PM CDT Oxygen Saturation 95% - Inhaled Oxygen - Concentration 08/29/2018 11:59 AM PLACEMENT DIRECTOR Weight 112.9 kg (249 lb) 08/29/2018 11:59 AM PLACEMENT DIRECTOR Height 188 cm (6' 2") 08/29/2018 11:59 AM PLACEMENT DIRECTOR Body Mass Index 31.97 Plan of Treatment Care Team Description Date Type Specialty [place] [address] [phone] 1 year f/u 04/10/2019 Office Visit Physical Medicine and Rehab Health Maintenance Due Date Last Done Comments Colonoscopy 5yr 06/19/2023 06/19/2018 (Previously completed - External) IMM Pneumococcal Age 65 Completed 05/15/2015 and Up IMM Influenza Seasonal Completed 05/23/2018, 04/24/2017 Oct to October (>/=19 yrs) Procedures Comments Procedure Name Priority Date/Time Associated Diagnosis PSA Routine 08/29/2018 Benign non-nodular 12:34 PM PLACEMENT DIRECTOR prostatic hyperplasia without lower urinary tract symptoms CBC/DIFF Routine 08/01/2018 Essential hypertension 11:04 AM PLACEMENT DIRECTOR TSH Routine 08/01/2018 Acquired hypothyroidism 11:04 AM PLACEMENT DIRECTOR HEMOGLOBIN A1C Routine 08/01/2018 Essential hypertension 11:04 AM PLACEMENT DIRECTOR LIVER PROFILE Routine 08/01/2018 Essential hypertension 11:04 AM PLACEMENT DIRECTOR BASIC METABOLIC PANEL Routine 08/01/2018 Essential hypertension 11:04 AM PLACEMENT DIRECTOR LIPID PROFILE Routine 08/01/2018 Essential hypertension 11:04 AM PLACEMENT DIRECTOR XRAY HIP BILATERAL 2 Routine 05/28/2018 Arthralgia of left lower VIEWS AND AP PELVIS 3:02 PM CDT leg XRAY KNEE 3 VIEWS Routine 05/28/2018 Arthralgia of left lower (ROUTINE W/ WT BEARING 3:02 PM CDT leg AP/LAT/SUN) OCCULT BLOOD ICT Routine 02/13/2018 Screen for colon cancer 3:55 PM CDT after 10/23/2017 Results * PSA (08/29/2018 12:34 PM PLACEMENT DIRECTOR) PSA 1.54 <4.1 ng/mL BT MAIN-STATION 1 Specimen Blood Performing Organization Address City/[facility]/Zipcode Phone Number MISYS BT MAIN-STATION 1 * HEMOGLOBIN A1C (08/01/2018 11:04 AM PLACEMENT DIRECTOR) Hemoglobin A1c 5.8 4.3 - 6.1 % BT DIAGNOSTIC IMMUNOLOGY Est Average 119.8 mg/dL BT DIAGNOSTIC Gluc IMMUNOLOGY Specimen Blood Performing Organization Address City/[facility] Phone Number M[facility] BT DIAGNOSTIC IMMUNOLOGY * TSH (08/01/2018 11:04 AM PLACEMENT DIRECTOR) TSH 2.43 0.57 - 3.74 uIU/mL BT MAIN-STATION 1 Specimen Blood Performing Organization Address [facility] Phone Number MISYS BT MAIN-STATION 1 * LIVER PROFILE (08/01/2018 11:04 AM PLACEMENT DIRECTOR) T Protein 6.4 6.0 - 8.3 g/dL [...] MAIN-STATION 1 Specimen Blood Performing Organization Address [facility] Phone Number MISYS BT MAIN-STATION 1 * LIPID PROFILE (08/01/2018 11:04 AM PLACEMENT DIRECTOR) Pathologist [facility] Cholesterol 137 mg/dL BT MAIN-STATION Comment: 1 REFERENCE RANGE: Desirable: <200 mg/dL Borderline: 200-240 mg/dL High Risk: >240 mg/dL Triglyceride 69 <150 mg/dL BT MAIN-STATION Comment: 1 REFERENCE RANGE: Normal: <150 mg/dL Borderline High: 150-199 mg/dL High: 200-499 mg/dL Very High: >ib=658 mg/dL HDL 56 mg/dL BT MAIN-STATION Comment: 1 Increased CHD risk: <40 mg/dL Decreased CHD risk: >60 mg/dL LDL 67 mg/dL BT MAIN-STATION Comment: 1 REFERENCE RANGE: Optimal: <100 mg/dL Near Optimal: 100-129 mg/dL Borderline High: 130-159 mg/dL High: 160-189 mg/dL Very High: >if=323 mg/dL Specimen Blood Performing Organization Address [facility] Phone Number MISYS BT MAIN-STATION 1 * CBC/DIFF (08/01/2018 11:04 AM PLACEMENT DIRECTOR) WBC 7.7 4.5 - 12.0 K/uL BT [...] * BASIC METABOLIC PANEL (08/01/2018 11:04 AM PLACEMENT DIRECTOR) CO2 32 (H) 21 - 31 mmol/L [...] Phone Number MISYS BT MAIN-STATION 1 * XRAY HIP BILATERAL 2 [...] At EXAM: XR BILATERAL HIP 3 VIEWS [facility] DATE:05/28/2018 3:02 PM INDICATION: left hip area [...] MD, 05/28/2018 4:32 PM Performing Organization Address City/[facility] Phone Number SMS * XRAY KNEE 3 [...] At EXAM: XR LEFT KNEE 3 VIEWS [facility] DATE:05/28/2018 3:02 PM INDICATION: left knee medial [...] MD, 05/28/2018 4:32 PM Performing Organization Address [facility] Phone Number SMS * OCCULT BLOOD ICT (02/13/2018 3:55 PM CDT) Occult Blood Positive (A) [facility] ICT Specimen Stool Performing Organization Address City/State/Zipcode Phone Number [facility] after 10/23/2017 Insurance Type Payer Benefit Subscriber ID Effective Phone Address Plan / Dates Group AARP MEDICARE COMPLETE AARP xxxxxxxxx 2018-P [phone] [address] [place] [address] [address] [place] [address]
--- NOTE | 2018-10-24 11:02 | NUR ---
1102am received pt Gas Producer Rm #9 Identiferx2 Back to baseline orientation. Ox4 Resp shallow and regular 100% Ra No gross issue of pain,pressure or dysthymia. Bilateral feet with Doppler Dp/Pt x4. Mottled. Pt had Bilateral Peripheral fix Rt with stent FSA. Left PAPER FOLDER will need return. By Dr Jackson. Spoke with pt up date to clifford brother per phone Left arm iv infusing at 75cchr per dial a flow . Voided 250cc urine. Abdomen soft and nontender Denies CP or Sob vs stable with monitor in NSR.Waffle and explanation of purpose to pt Ordered cardiac diet. Bilateral minx dressings to groin dry and intact w/o hematoma. Flat till 445pm aware of precautions will do dc POC when brother Clifford returns . bayron/rn
--- NOTE | 2018-10-24 13:00 | NUR ---
Received report from Josh ISSA Pt had 3cm hematoma around MInx site on left femoral site. PP still present dopplerx2. Medicated with Narco 5/250 po and assisted with nidhi reynoso Bp tending down so Hydralazine held at this time. Per Dr Jackson previous order. Positioned for comfort no active issues of further pain, pressure,feet remain mottled. and cool as before. Bilateral minx dressing remain intact. bayron/reese Addendum: 10/24/18 at 2016 by Fina Olvera RN Correction typo Narco ordered 5/325 po given as ordered pulled from radiology accudose.
--- NOTE | 2018-10-24 13:30 | NUR ---
1330 Bilateral PPx4 with left DP/PT (1+) and right DP/PT( 2+) Doppler only. States pain diminishing. Reassessed left groin no increase size of hematoma. No further issues of Pain or pressure or dysrhythmia. ds/rn
--- NOTE | 2018-10-24 13:41 | Operative Report ---
DATE OF PROCEDURE: 10/24/2018 SURGEON: Victorino Jackson DO PROCEDURES PERFORMED: 1. Conscious sedation, 90 minutes. 2. Bilateral first order peripheral angiography of the lower extremities. 3. Bilateral extremity angiography. 4. Self-expanding stent deployment to the right superficial femoral artery via an antegrade approach. 5. Attempted angioplasty of the left superficial femoral artery chronic total occlusion. PREPROCEDURE DIAGNOSIS: Peripheral arterial disease with ulcerations. POSTPROCEDURE DIAGNOSIS: Peripheral arterial disease with ulcerations. ESTIMATED BLOOD LOSS: Less than 20 mL. SPECIMENS REMOVED: None. PROCEDURE IN DETAIL: After informed consent was obtained, the patient was brought to the cardiac catheterization laboratory in a fasting and nonsedated state. Bilateral groins were prepped and draped in usual sterile fashion. The patient had previous peripheral intervention of the right lower extremity and a decision was made to further interrogate this area for patency of those vessels given significant ulcerations of the right lower extremity. 2% lidocaine was infiltrated over bilateral anterior groin areas. Bilateral common femoral arteries were accessed via antegrade approach with placement of two 6-Uzbek sheaths. Diagnostic imaging of the right lower extremity revealed patency of the right superficial femoral artery with sluggish flow and dissection planes. Decision was made to perform a peripheral intervention. The patient received systemic heparin for therapeutic anticoagulation. The dissection area was crossed with a [place] Advantage wire, then stented with a 7 x 150 mm self expanding LifeStent. This was then post dilated with an 8 mm balloon. Final angiography revealed excellent stent apposition with three-vessel runoff of right lower extremity. Next, peripheral angiography of the left lower extremity revealed a chronic total occlusion of the mid superficial femoral artery. I attempted to cross this lesion with a Command and Astato 20 wire with backup microcatheter without success. The procedure was ended at this point in time. Bilateral groins were closed with Mynx devices. The patient tolerated the procedure well with no immediate complication. He was transported back to his room in stable condition. RECOMMENDATIONS: Continue dual antiplatelet therapy and statin medications. The patient will be brought back at a later date for a retrograde peripheral intervention of the left lower extremity. Victorino Jackson DO BM/MODL /[id number]
--- NOTE | 2018-10-24 14:00 | NUR ---
1400 resting quietly w/o any gross signs of pallor or pressure or dysrhythmia or pain voiced about left groin Minx closure sites remain intact w/o oozing hematoma. ds/rn
--- NOTE | 2018-10-24 16:45 | NUR ---
1645 Brother Gene arrived Reviewed dc papers assist pt with dressing and to dc home with family vacuum truck driver No gross symptoms pain ,pallor,pressure or dysthymia. Copies of dc papers and escorted to car per w/c stable aware of importance of followup care and precautions. Bilateral minx closure device intact w/o hematoma and bleeding. Escorted to car per w/o denies co CP or SOB Brother is driving. ds/rn
== END | disposition home or self-care (01) ==
LOC: CATH LAB 06:07
PROVIDERS: ATTEND Internal Medicine Cardiovascular Disease
DX: I70.249 Atherosclerosis of native arteries of left leg with ulceration of unspecified site (principal); I70.239 Atherosclerosis of native arteries of right leg with ulceration of unspecified site; I70.92 Chronic total occlusion of artery of the extremities; R07.2 Precordial pain; I10 Essential (primary) hypertension; E07.9 Disorder of thyroid, unspecified; Z01.812 Encounter for preprocedural laboratory examination; Z79.02 Long term (current) use of antithrombotics/antiplatelets; Z79.82 Long term (current) use of aspirin; Z68.31 Body mass index [BMI] 31.0-31.9, adult; Z82.49 Family history of ischemic heart disease and other diseases of the circulatory system; Z82.3 Family history of stroke
CPT/HCPCS: 36415; 37224; 37226; 75716; 80053; 85025; 85610; C1725 ×3; C1760; C1769 ×3; C1876; C1887; J1644; J2001; J2250; J7030; Q9967; 36216

== ENCOUNTER 2019-01-23 19:44 | Observation (INO) | payer MEDICARE, OTHER ==
[2019-01-20 12:11] LABS: BASOPHILS % 0.5 % (0.0-1.0); EOSINOPHILS # (AUTO) 0.1 (0.0-0.4); EOSINOPHILS % 1.2 % (0.0-6.0); HEMATOCRIT 43.4 % (38.2-49.6); HEMOGLOBIN 14.3 g/dL (14.0-18.0); LYMPHOCYTES # (AUTO) 0.5 (1.0-3.2); MEAN CORPUSCULAR HGB CONC 32.9 g/dL (31-35); MEAN CORPUSCULAR VOLUME 93.9 fL (81-99); MONOCYTES # (AUTO) 0.5 (0.2-0.8); MONOCYTES % 6.9 % (4.4-11.3); NEUTROPHILS # (AUTO) 6.3 (2.1-6.9); PLATELET COUNT 431 x10e3/uL (140-360); RED BLOOD COUNT 4.62 x10e6/uL (4.3-5.7); RED CELL DISTRIBUTION WIDTH 13.1 % (11.7-14.4)
[2019-01-20 12:25] LABS: PROTHROMBIN TIME 13.7 seconds (11.9-14.5)
[2019-01-20 12:35] LABS: ALANINE AMINOTRANSFERASE 19 IU/L (0-55); ALBUMIN 4.1 g/dL (3.5-5.0); ALBUMIN/GLOBULIN RATIO 1.5 (0.8-2.0); ALKALINE PHOSPHATASE 59 IU/L (40-150); ANION GAP 12.5 mmol/L (8-16); BLOOD UREA NITROGEN 15 mg/dL (7-26); BUN/CREATININE RATIO 15 (6-25); CALCIUM 9.6 mg/dL (8.4-10.2); CARBON DIOXIDE 30 mmol/L (22-29); CHLORIDE 100 mmol/L (98-107); CREATININE, SERUM 0.97 mg/dL (0.72-1.25); EST GLOMERULAR FILTRATION RATE > 60 ML/MIN (60-); GLUCOSE 108 mg/dL (74-118); POTASSIUM 4.5 mmol/L (3.5-5.1); SODIUM 138 mmol/L (136-145)
[~2019-01-23] VITALS: Ht 186.7 cm; Wt 107.7 kg
[2019-01-23] VITALS (13 sets, daily range): BP systolic 114–173; BP diastolic 61–77
--- NOTE | 2019-01-23 16:32 | NUR ---
1632pm Received pt in Rm 9 Report form Josh Manning. Identiferx2 CONTROL AREA OPERATOR Distal Dissecting SFA with stentx2 by DR Jackson. Admit to observation tonight game farm supervisor notified, Left iv infusing at 125cchr till 6am. No s/s infiltration.Rt Radial band with 15cc and Left PT with 19cc in band No gross issues with pain pallor pressure or dysrhythmia. Rt Tr band site with adequate neuro vascular function.Ok to reduce air in bands at 1800pm. Back to baseline orientation DC papers reviewed with niece per pt preference and copies given to family for am dc after 6am. Abd soft and non tender denies necessity to defecate or urinate. Tolerating po intake well. Bilateral lower ext still has some dusky splotchy areas from chronic lower ext poor circulation Vein fix will be followup in Dr Jackson office after dc Bilateral PPx4 Dp/Pt present 2+/2+/2+/2+/2+ Doppler. Denies c/o Cp or SOB Neuro vascular function remains in tact. Observation status bed requested. 1800 reduction of air to left pedal Tr band and Rt Radial Tr band site completed with adequate stasis and positive neuro vascualr function Rt pedal with 2x2 and Tegederm and Rt arm with 2x2 Tegaderm and Coban arm splint in place. Has copies of POC and aware of importance of f/o care. 1900 Bed assignment 177 and phone report attempted.No gross issues pain pallor pressure or dysrhythmia. 1930 Phone report with f/o face to face handoff to Quintin Manning Knows POC and pt dc in am per Dr Jackson service. Hemostasis has been achieved to post pedal site and rt radial wrist site Splint in place aware of iv infusion rate and no sign of infiltration. Pt w/o co left room with RN at bedside call light at bedside and bed low position. Denies any c/o ds/rn
[~2019-01-23 19:44] MED LIST changes: +ASPIRIN 325 MG TAB ONE; -ATROPINE SULFATE 0.1 MG/ML 10ML SYR ONE; +HEPARIN SOD/SOD CHLORIDE 1,000 ML ONE; -HYDROCODONE/APAP 5MG-325MG TAB ONE; +IOPAMIDOL 370 MG/ML 200 ML INFUS..BTL INJ ONE; +TICAGRELOR 90 MG TABLET ONE; +VERAPAMIL HCL 2.5 MG/ML 2 ML VIAL ONE
--- OUTSIDE RECORDS SUMMARY | 2019-01-23 19:47 | XMS REPORT | Clinical Summary ---
Author Author [facility] Organization [facility] Address Unknown Phone Unavailable Care Team Providers Care Television Script Writer Name Role Phone Kendell Nguyen MD PCP [...] times cerumen of right ear daily. Active triamcinolone (TRIDERM) Apply to 80 g [...] 9 creamIndications: Fungal 2 times dermatitis daily. Active amLODIPine (NORVASC) 5 mg Take 1 tablet 90 tablet 2 tabletIndications: by mouth 9 Essential hypertension daily. 12/16/2019 Active hydroCHLOROthiazide Take 1 tablet 90 tablet 2 (HYDRODIURIL) 25 mg by mouth 9 tabletIndications: daily. Essential hypertension Active levothyroxine (SYNTHROID) Take 1 tablet 90 tablet 2 75 mcg tabletIndications: by mouth 9 Acquired hypothyroidism every morning, before breakfast. Active Alfuzosin 10 mg 24 hr Take 1 tablet 90 tablet 1 tabletIndications: Benign by mouth 9 non-nodular prostatic daily For hyperplasia without lower prostate. urinary tract symptoms 07/19/2018 Discontinued ketoconazole (NIZORAL) 2 Apply to [...] along with 5 mg dose for HTN. 08/29/2018 Discontinued ciclopirox (PENLAC) 8 % Apply to the 0 external solution affected toe nails as directed . 12/16/2018 Discontinued loratadine (CLARITIN) 10 Take 1 tablet 90 tablet 1 mg tabletIndications: by mouth 8 Seasonal allergic daily Prn rhinitis due to pollen congestion. 12/16/2018 Discontinued fluticasone (FLONASE) 50 Use 1 [place] 16 g 3 mcg/actuation nasal in each 8 sprayIndications: nostril daily Seasonal allergic Prn rhinitis due to pollen congestion. 12/16/2018 Discontinued amLODIPine (NORVASC) 5 mg Take 1 tablet 90 tablet 2 tabletIndications: by mouth 8 Essential hypertension, daily. Issue of repeat prescription for medication 12/16/2018 Discontinued hydroCHLOROthiazide Take 1 tablet 90 tablet 2 (HYDRODIURIL) 25 mg by mouth 8 tabletIndications: daily. Essential hypertension, Issue of repeat prescription for medication 12/16/2018 Discontinued levothyroxine (SYNTHROID) Take 1 tablet 90 tablet 2 75 mcg tabletIndications: by mouth 8 Acquired hypothyroidism, every Issue of repeat morning, prescription for before medication breakfast. Active Problems Problem Noted Date Varicose veins of both lower extremities with inflammation 12/16/2018 Prediabetes 08/29/2018 Seborrheic dermatitis of scalp 07/19/2018 Exercise counseling for Above Normal BMI Only! 04/23/2018 Occult blood positive stool 02/16/2018 Benign non-nodular prostatic hyperplasia without lower urinary tract 05/19/2016 symptoms Facial abscess 05/15/2016 Chronic pain of right heel 09/01/2015 Callus of foot 07/09/2015 Onychomycosis 07/09/2015 BMI 29.0-29.9,adult 03/02/2015 Dietary [...] MD Essential hypertension (Primary Dx); Acquired hypothyroidism; Prediabetes; Seborrheic dermatitis of scalp; Benign non-nodular prostatic hyperplasia without lower urinary tract symptoms; Varicose veins of both lower extremities with inflammation; Callus of foot 12/16/2018 Office Visit Family Practice Patience Sherman MD Right knee pain, unspecified chronicity (Primary Dx) 12/05/2018 Emergency Emergency Medicine 12/05/2018 Travel Lauren Cavanaugh RN 12/03/2018 Nurse Triage Kendell Nguyen MD Consult 11/17/2018 Telephone Family Practice Juan Reed RN Consult 11/15/2018 Telephone Family Practice Kendell Nguyen MD ERRONEOUS ENCOUNTER--DISREGARD (Primary Dx) 11/15/2018 Nurse Only Family Practice Juan Reed, MAEGAN Consult 11/12/2018 Telephone Family Practice Juan Reed, MAEGAN Consult 11/04/2018 Telephone Family Practice Michelel Mello OT Varicose veins of both lower extremities, unspecified whether complicated (Primary Dx) 10/14/2018 Therapy Occupational Therapy 10/14/2018 Travel Lauren Patterson Consult (outside consult---podiatry--------message rec'd from PAC); Consult (outside consult to ENT); Consult (outside [...] (Primary Dx) 03/06/2018 Emergency Emergency Medicine Kacie Man, MAEGAN 03/05/2018 Nurse Triage Kendell Nguyen MD Occult blood positive stool (Primary Dx) 02/16/2018 Orders Only Family Practice Kendell Nguyen MD Screen for colon cancer 02/13/2018 Orders Only Family Practice Kendell Nguyen MD Essential hypertension (Primary Dx); Acquired hypothyroidism; Varicose veins of both lower extremities; Screen for colon cancer; Seborrheic dermatitis, unspecified; Seasonal allergic rhinitis due to pollen 02/12/2018 Office Visit Family Practice after 01/22/2018 Immunizations Name Administration Dates Next Due Influenza <Unspecified> 05/23/2018, 04/24/2017 Influenza [...] Never Used Tobacco Cessation: Counseling Given: No Drinks/Week oz/Week Comments Alcohol Use 0 Standard drinks or equivalent 0.0 No Food Insecurity Answer Date Recorded Within the past 12 months, you worried that your Never true 12/16/2018 food would run out before you got money to buy more. Within the past 12 months, the food you bought Never true 12/16/2018 just didn't last and you didn't have money to get more. Sex Assigned at Date Recorded Not on file Industry Job Start Date Occupation Not on file Not on file Not on file Travel End Travel History Travel Start No recent travel history available. Last Filed Vital Signs Reading Time Taken Comments Vital Sign 130/65 12/16/2018 4:26 PM CDT Blood Pressure 66 12/16/2018 4:26 PM CDT Pulse 36.8 C (98.3 F) 12/16/2018 4:26 PM CDT Temperature 20 12/16/2018 4:26 PM CDT Respiratory Rate 98% 12/05/2018 6:00 PM CDT Oxygen Saturation - - Inhaled Oxygen Concentration 109.4 kg (241 lb 1.6 oz) 12/05/2018 2:07 PM CDT Weight 188 cm (6' 2") 12/16/2018 4:26 PM CDT Height 30.96 08/29/2018 11:59 AM [employer] TE[employer]ER Body Mass Index Plan of Treatment Care Team Description Date Type Specialty Kendell Nguyne MD [address] [place], [place] [id number] 1 month f/u 02/07/2019 Office Visit Family Practice Arabella Villagran MD [facility] [address] [id number] 1 year f/u 04/10/2019 Office Visit Physical Medicine and Rehab Health Maintenance Due Date Last Done Comments IMM Influenza Seasonal 05/06/2019 05/23/2018, 04/24/2017 Oct to October (>/=19 yrs) Colonoscopy 5yr 06/19/2023 06/19/2018 (Previously completed - External) IMM Pneumococcal Age 64 Completed 05/15/2015 and Up Procedures Comments Procedure Name Priority Date/Time Associated Diagnosis THYROID STIMULATING Routine 12/17/2018 Acquired hypothyroidism HORMONE (TSH) 1:33 PM CDT HEMOGLOBIN A1C Routine 12/17/2018 Prediabetes 1:33 PM CDT LIVER PROFILE Routine 12/17/2018 Essential hypertension 1:33 PM CDT BASIC METABOLIC PANEL Routine 12/17/2018 Prediabetes 1:33 PM CDT LIPID PROFILE Routine 12/17/2018 Essential hypertension 1:33 PM CDT XRAY KNEE 3 VIEWS (TRAUMA STAT 12/05/2018 Right knee pain, - AP/LAT/OBL) 5:59 PM CDT unspecified chronicity PROSTATE SPECIFIC ANTIGEN Routine 08/29/2018 Benign non-nodular (PSA) 12:34 PM [employer]ER prostatic hyperplasia without lower urinary tract symptoms CBC/DIFF Routine 08/01/2018 Essential hypertension 11:04 AM [employer]ANT C[employer] TE[employer]ER THYROID STIMULATING Routine 08/01/2018 Acquired hypothyroidism HORMONE (TSH) 11:04 AM [employer] IN[employer]ANT C[employer] TE[employer]ER HEMOGLOBIN A1C Routine 08/01/2018 Essential hypertension 11:04 AM [employer] IN[employer]ANT C[employer] TE[employer]ER LIVER PROFILE Routine 08/01/2018 Essential hypertension 11:04 AM [employer] C[employer] TE[employer]ER BASIC METABOLIC PANEL Routine 08/01/2018 Essential hypertension 11:04 AM [employer] TE[employer]ER LIPID PROFILE Routine 08/01/2018 Essential hypertension 11:04 AM [employer] IN[employer] C[employer] TE[employer]ER XRAY HIP BILATERAL 2 Routine 05/28/2018 Arthralgia of left lower VIEWS AND AP PELVIS 3:02 PM CDT leg XRAY KNEE 3 VIEWS Routine 05/28/2018 Arthralgia of left lower (ROUTINE W/ WT BEARING 3:02 PM CDT leg AP/LAT/SUN) FECAL OCCULT BLOOD Routine 02/13/2018 Screen for colon cancer 3:55 PM CDT after 01/22/2018 Results * HEMOGLOBIN A1C (12/17/2018 1:33 PM CDT) Only the most recent of 2 results within the time period is included. Hemoglobin A1c 5.7 4.3 - 6.1 % BT DIAGNOSTIC IMMUNOLOGY Est Average 116.9 mg/dL BT DIAGNOSTIC Gluc IMMUNOLOGY Specimen Blood Performing Organization Address [facility] [place] Phone Number [facility] * TSH (12/17/2018 1:33 PM CDT) Only the most recent of 2 results within the time period is included. TSH 1.27 0.57 - 3.74 uIU/mL BT MAIN-STATION 1 Specimen Blood Performing Organization Address [facility] [place] Phone Number [facility] * LIVER PROFILE (12/17/2018 1:33 PM CDT) Only the most recent of 2 results within the time period is included. Protein, Total, 6.7 6.0 - 8.3 g/dL BT MAIN-STATION Serum 1 Albumin 4.4 4.2 - 5.5 g/dL BT MAIN-STATION 1 Bilirubin, 1.0 0.2 - 1.2 mg/dL BT MAIN-STATION Total 1 Alkaline 57 34 - 104 U/L BT MAIN-STATION Phosphatase, S 1 AST (SGOT) 18 13 - 39 U/L BT MAIN-STATION 1 ALT 18 7 - 52 U/L BT MAIN-STATION 1 D Bilirubin 0.2 0.0 - 0.2 mg/dL BT MAIN-STATION 1 Specimen Blood Performing Organization Address [facility] [place] Phone Number [facility] BT MAIN-STATION 1 * LIPID PROFILE (12/17/2018 1:33 PM CDT) Only the most recent of 2 results within the time period is included. Cholesterol 156 mg/dL BT MAIN-STATION Comment: 1 REFERENCE RANGE: Desirable: <200 mg/dL Borderline: 200-240 mg/dL High Risk: >240 mg/dL Triglyceride 65 <150 mg/dL BT MAIN-STATION Comment: 1 REFERENCE RANGE: Normal: <150 mg/dL Borderline High: 150-199 mg/dL High: 200-499 mg/dL Very High: >qc=866 mg/dL HDL 59 mg/dL BT MAIN-STATION Comment: 1 Increased CHD risk: <40 mg/dL Decreased CHD risk: >60 mg/dL LDL 84 mg/dL BT MAIN-STATION Comment: 1 REFERENCE RANGE: Optimal: <100 mg/dL Near Optimal: 100-129 mg/dL Borderline High: 130-159 mg/dL High: 160-189 mg/dL Very High: >yl=395 mg/dL Specimen Blood Performing Organization Address [facility] Phone Number [facility] BT [facility]IN-STATION 1 * BASIC METABOLIC PANEL (12/17/2018 1:33 PM CDT) Only the most recent of 2 results within the time period is included. CO2 30 21 - 31 mmol/L BT MAIN-STATION 1 Chloride 95 (L) 98 - 107 mmol/L BT MAIN-STATION 1 Potassium 4.5 3.5 - 5.1 mmol/L BT MAIN-STATION 1 Sodium 133 (L) 136 - 145 mmol/L BT MAIN-STATION 1 Glucose 97 70 - 110 mg/dL BT MAIN-STATION 1 BUN 19 7 - 25 mg/dL BT MAIN-STATION 1 Creatinine 0.80 0.7 - 1.3 mg/dL BT MAIN-STATION 1 Anion Gap 8 BT MAIN-STATION 1 Calcium 9.6 8.6 - 10.3 mg/dL BT MAIN-STATION 1 GFR, Estimated >60 mL/min/1.73 m2 BT MAIN-STATION 1 eGFR If Africn >60 mL/min/1.73 m2 BT MAIN-STATION Am 1 Specimen Blood Performing Organization Address [facility] [place] Phone Number [facility] BT MAIN-STATION 1 * XRAY KNEE 3 VIEWS (TRAUMA - AP/LAT/OBL) (12/05/2018 5:59 PM CDT) Specimen Impressions Performed At IMPRESSION: SMS 1.Moderate knee joint effusion with intra-articular calcified fragments, without acute fracture or malalignment. 2.Moderate osteoarthrosis of the knee, medial compartment predominant. Dictated By: Indio Lam MD, 12/05/2018 4:18 PM I have reviewed the study and agree with the findings in this report. Signed By: Carola Spencer MD, 12/05/2018 4:35 PM Narrative Performed At EXAM: XR RIGHT KNEE 3 VIEWS [facility] DATE:12/05/2018 3:41 PM INDICATION: R knee pain. Right knee pain, unspecified chronicity COMPARISON: Left knee x-rays 05/28/2018 TECHNIQUE: AP, lateral and oblique radiographs of the knee FINDINGS:No fracture, dislocation or other acute bony abnormality is identified. There is definite medial joint space narrowing, along with definite tricompartmental osteophyte formation is seen. A moderate knee joint effusion is identified, with intra-articular calcifications most evident at the suprapatellar bursa. Chondrocalcinosis is present. A vascular stent is partially visualized posterior to the mid to distal femur. Procedure Note Interface, Rad/Mammog In - 12/05/2018 5:59 PM CDT EXAM: XR RIGHT KNEE 3 VIEWS DATE: 12/05/2018 3:41 PM INDICATION: R knee pain. Right knee pain, unspecified chronicity COMPARISON: Left knee x-rays 05/28/2018 TECHNIQUE: AP, lateral and oblique radiographs of the knee FINDINGS: No fracture, dislocation or other acute bony abnormality is identified. There is definite medial joint space narrowing, along with definite tricompartmental osteophyte formation is seen. A moderate knee joint effusion is identified, with intra-articular calcifications most evident at the suprapatellar bursa. Chondrocalcinosis is present. A vascular stent is partially visualized posterior to the mid to distal femur. IMPRESSION IMPRESSION: 1. Moderate knee joint effusion with intra-articular calcified fragments, without acute fracture or malalignment. 2. Moderate osteoarthrosis of the knee, medial compartment predominant. Dictated By: Indio Lam MD, 12/05/2018 4:18 PM I have reviewed the study and agree with the findings in this report. Signed By: Carola Spencer MD, 12/05/2018 4:35 PM Performing Organization Address [facility] Phone Number SMS * PSA (08/29/2018 12:34 PM [employer] TE[employer]ER) Prostate 1.54 <4.1 ng/mL BT MAIN-STATION Specific Ag, 1 Serum Specimen Blood Performing Organization Address [facility] Phone Number [facility] BT MAIN-STATION 1 * CBC/DIFF (08/01/2018 11:04 AM [employer]IRTH AND INFANT C[employer] TEACHER) WBC 7.7 4.5 - 12.0 K/uL BT [...] 35.1 - 43.9 fL BT MAIN-STATION 2 Platelets 511 (H) 150 - 400 K/uL BT MAIN-STATION 2 Mean Platelet 10.3 9.4 - 12.4 fL BT MAIN-STATION Volume 2 Percent NRBC 0.0 BT MAIN-STATION 2 Absolute NRBC 0.00 BT MAIN-STATION 2 Neutrophils 79.1 (H) 34.0 - 67.9 % BT MAIN-STATION 2 Lymphs 9.2 (L) 21.8 - 50.0 % BT MAIN-STATION 2 Monocytes 8.7 5.3 - 12.0 % BT MAIN-STATION 2 Eos 2.3 0.8 - 5.0 % BT MAIN-STATION 2 Basos 0.4 0.2 - 1.2 % BT MAIN-STATION 2 Immature 0.3 0.0 - 0.5 BT MAIN-STATION Granulocytes 2 Neutrophils 6.11 (H) 1.78 - 5.36 K/uL BT MAIN-STATION (Absolute) 2 Lymphs 0.71 (L) 1.32 - 3.57 K/uL BT MAIN-STATION (Absolute) 2 Monocytes(Absol 0.67 0.30 - 0.82 K/uL BT MAIN-STATION morongo) 2 Eos (Absolute) 0.18 0.04 - 0.54 K/uL BT MAIN-STATION 2 Baso (Absolute) 0.03 0.01 - 0.08 K/uL BT MAIN-STATION 2 Immature Grans 0.02 0.00 - 0.03 K/uL BT MAIN-STATION (Abs) 2 Specimen Blood Performing Organization Address City/State/Zipcode Phone Number [facility] BT MAIN-STATION 2 * XRAY HIP BILATERAL 2 VIEWS AND AP PELVIS (05/28/2018 3:02 PM CDT) Specimen Impressions Performed At IMPRESSION:Mild degenerative changes in the bilateral hip joints, SMS lower lumbar spine and left sacroiliac joint. Dictated By: Soco Mcdaniel MD, 05/28/2018 3:19 PM I have reviewed the study and agree with the findings in this report. Signed By: Abdulkadir Briggs MD, 05/28/2018 4:32 PM Narrative Performed At EXAM: XR BILATERAL HIP 3 VIEWS SMS DATE:05/28/2018 3:02 PM INDICATION: left hip area [...] MD, 05/28/2018 4:32 PM Performing Organization Address [facility] Phone Number SMS * XRAY KNEE 3 VIEWS (ROUTINE W/ WT BEARING AP/LAT/SUN) (05/28/2018 3:02 PM CDT) Specimen Impressions Performed At IMPRESSION: SMS 1. Kellgren-Herber Grade 2 osteoarthrosis. 2. No other bony abnormality. Dictated By: Soco Mcdaniel MD, 05/28/2018 3:17 PM I have reviewed the study and agree with the findings in this report. Signed By: Abdulkadir Briggs MD, 05/28/2018 4:32 PM Narrative Performed At EXAM: XR LEFT KNEE 3 VIEWS SMS DATE:05/28/2018 3:02 PM INDICATION: left knee medial [...] Stool Performing Organization Address City/State/Zipcode Phone Number [facility] after 01/22/2018 Insurance Type Payer Benefit Subscriber ID Effective Phone Address Plan / Dates Group AARP MEDICARE COMPLETE AARP xxxxxxxxx 2018-P [phone] [address] MEDICARE resent [id number] [place] [address]
--- OUTSIDE RECORDS SUMMARY | 2019-01-23 19:47 | XMS REPORT | Clinical Summary ---
Author Author [facility] Organization [facility] Address Unknown Phone Unavailable Care Team Providers Care Edger Automatic Name Role Phone Kendell Nguyen MD PCP [...] 12/16/2018 Discontinued fluticasone (FLONASE) 50 Use 1 [place] 16 g 3 mcg/actuation nasal in each [...] Reed, MAEGAN Consult 11/04/2018 Telephone Family Practice Michelle Mello OT Varicose veins of both [...] for medication 04/23/2018 Office Visit Family Practice hPillip Padilla OT Varicose veins of both lower [...] PM CDT Height 30.96 08/29/2018 11:59 AM HIM SPECIALIST Body Mass Index Plan of Treatment Care Team Description Date Type Specialty Kendell Nguyen MD [address] [place], [place] [id number] 1 month f/u 02/07/2019 Office Visit Family Practice Arabella Villagran MD [facility] [address] [id number] 1 year f/u 04/10/2019 Office Visit Physical [...] Routine 08/29/2018 Benign non-nodular (PSA) 12:34 PM HIM SPECIALIST prostatic hyperplasia without lower urinary tract symptoms CBC/DIFF Routine 08/01/2018 Essential hypertension 11:04 AM HIM SPECIALIST THYROID STIMULATING Routine 08/01/2018 Acquired hypothyroidism HORMONE (TSH) 11:04 AM HIM SPECIALIST HEMOGLOBIN A1C Routine 08/01/2018 Essential hypertension 11:04 AM HIM SPECIALIST LIVER PROFILE Routine 08/01/2018 Essential hypertension 11:04 AM HIM SPECIALIST BASIC METABOLIC PANEL Routine 08/01/2018 Essential hypertension 11:04 AM HIM SPECIALIST LIPID PROFILE Routine 08/01/2018 Essential hypertension 11:04 AM HIM SPECIALIST XRAY HIP BILATERAL 2 Routine 05/28/2018 Arthralgia [...] Gluc IMMUNOLOGY Specimen Blood Performing Organization Address [facility] Phone Number [facility] DIAGNOSTIC IMMUNOLOGY * TSH (12/17/2018 1:33 PM CDT) Only the most recent of 2 results within the time period is included. TSH 1.27 0.57 - 3.74 uIU/mL BT MAIN-STATION 1 Specimen Blood Performing Organization Address [facility] Phone Number [facility] * LIVER [...] MAIN-STATION 1 Specimen Blood Performing Organization Address [facility] Phone Number [facility] BT MAIN-STATION 1 * [...] 150-199 mg/dL High: 200-499 mg/dL Very High: >yf=025 mg/dL HDL 59 mg/dL BT MAIN-STATION Comment: 1 Increased CHD risk: <40 mg/dL Decreased CHD risk: >60 mg/dL LDL 84 mg/dL BT MAIN-STATION Comment: 1 REFERENCE RANGE: Optimal: <100 mg/dL Near Optimal: 100-129 mg/dL Borderline High: 130-159 mg/dL High: 160-189 mg/dL Very High: >ma=109 mg/dL Specimen Blood Performing Organization Address City[facility] Phone Number [facility] BT MAIN-STATION 1 * [...] Am 1 Specimen Blood Performing Organization Address [facility] Phone Number [facility] BT MAIN-STATION 1 * [...] At EXAM: XR RIGHT KNEE 3 VIEWS [facility] DATE:12/05/2018 3:41 PM INDICATION: R knee [...] MD, 12/05/2018 4:35 PM Performing Organization Address [facility] Phone Number SMS * PSA (08/29/2018 12:34 PM HIM SPECIALIST) Prostate 1.54 <4.1 ng/mL BT MAIN-STATION Specific Ag, 1 Serum Specimen Blood Performing Organization Address [facility] Phone Number [facility] BT MAIN-STATION 1 * CBC/DIFF (08/01/2018 11:04 AM HIM SPECIALIST) WBC 7.7 4.5 - 12.0 K/uL BT [...] 0.67 0.30 - 0.82 K/uL BT MAIN-STATION cahto) 2 Eos (Absolute) 0.18 0.04 - 0.54 [...] MD, 05/28/2018 4:32 PM Performing Organization Address [facility]State[facility] Phone Number SMS * XRAY KNEE 3 [...] Group AARP MEDICARE COMPLETE AARP xxxxxxxxx 2018-P [phone] [address] MEDICARE resent [id number] [place] [address]
[2019-01-23] MEDS: SODIUM CHLORIDE 0.9% 1000ML 1,000 ML IV SCH (20:45)
--- NOTE | 2019-01-23 21:43 | NUR ---
RECEIVED PT TO UNIT ROOM 114 FROM OBSERVATION VIA HOSPITAL BED AT THIS TIME.PT AAO X 3 .NO S/S OF ACUTE DISTRESS NOTED.RESPIRATIONS EVEN/NON LABORED.PT HAS AN IV TO LEFT AC INTACT AND PATENT WITH NS RUNNING AT 125 ML/HR.RIGHT RADIAL ACCESS SITE DRESSING C/D/I,AND HAS SPLINT IN PLACE WITH COBAN WRAPPED AROUND.LEFT PEDAL ACCESS SITE DRESSING C/D/I.NO S/S OF HEMATOMA NOTED.PT DENIES ANY PAIN AT THIS TIME.SNACK WAS PROVIDED.INSTRUCTED PT TO CALL FOR ASSISTANCE NEEDED BY USING CALL LIGHT.PT VERBALIZED UNDERSTANDING.BED IN LOW/LOCKED POSITION.CALL LIGHT WITHIN EASY REACH.
--- NOTE | 2019-01-23 23:50 | Operative Report ---
DATE OF PROCEDURE: 01/23/2019 SURGEON: Victorino Jackson DO PROCEDURES PERFORMED: 1. Conscious sedation, 2 hours. 2. Third-order peripheral angiography of the left lower extremity via a right radial approach. 3. Retrograde angiography of the left lower extremity via left posterior tibial approach. 4. Percutaneous transluminal angioplasty and self expanding stent placement to the [id number] superficial femoral and proximal popliteal artery on the left lower extremity. PREPROCEDURE DIAGNOSIS: Peripheral vascular disease with claudication and wounds. POSTPROCEDURE DIAGNOSIS: Peripheral vascular disease with claudication and wounds. ESTIMATED BLOOD LOSS: Less than 20 mL. SPECIMENS REMOVED: None. PROCEDURE IN DETAIL: After informed consent was obtained, the patient was brought to the cardiac catheterization laboratory in a fasting and nonsedated state. His right wrist and left posterior tibial site were prepped and draped in usual sterile fashion. A 2% lidocaine was infiltrated over the right radial artery for local anesthesia. Using a micropuncture needle, the right radial artery was accessed via modified Seldinger technique and a 6-[place] Slender sheath was placed. Next, a long [place] Advantage wire was inserted into the left iliac artery, then the sheath was exchanged for a long 149 cm Zulama Destination sheath. Next, using a microcatheter, I tried to wire escalate and cross the chronic total occlusion of the left superficial femoral artery. Next, I used a mini J-wire with a microcatheter and I entered into a dissection plane down to the proximal popliteal vessel. Further wire escalation was performed; however, cannot cross into the true lumen distally. Next, I used ultrasound-guided access and I gained access into the left posterior tibial artery with a 6-[place] slender sheath was placed. Next, using a 1.8 microcatheter, wire escalated, then entered into a dissection plane from a retrograde approach. Next, using the Outback catheter, I reentered into the true lumen proximally. Next, I performed balloon angioplasty of the superficial femoral artery stenosis with a 6 mm Lutonix drug-coated balloon. Next, the proximal dissection plane was stented with a 7 x 200 self expanding stent. Next, the distal portion was stented with a 6 x 120 self expanding stent. The stents were then post dilated with a 7 mm and 6 mm balloons. Final angiography revealed excellent stent apposition with brisk antegrade flow distally. There was no evidence of wedge dissection, distal embolization, or vessel perforation at the end of the case. Both sheaths were removed and hemostasis was achieved via TR band. The patient tolerated the procedure well with no immediate complications, transferred back to room to his room in stable condition. IMPRESSION: Chronic total occlusion of the left superficial femoral artery, status post balloon angioplasty and stent placement. RECOMMENDATIONS: Continue dual antiplatelet therapy and guideline-directed medical therapy for his peripheral arterial disease. DO ERNESTO Martinez/MODL /[id number]
[2019-01-24] MEDS ORDERED: ACETAMINOPHEN 650 MG PO PRN (01:00)
--- NOTE | 2019-01-24 01:33 | NUR ---
PT RESTING IN BED WITH NO S/S OF DISTRESS.RESPIRATIONS EVEN/NON LABORED.PT VOIDED X 2 IN THE URINAL.CALL LIGHT WITHIN EASY REACH.
[2019-01-24 04:00] VITALS: BP 130/67
[2019-01-24] MEDS: SODIUM CHLORIDE 0.9% 1000ML 1,000 ML IV SCH (04:45)
--- NOTE | 2019-01-24 07:15 | NUR ---
The pt. is in bed awake and denies pain or discomfort at his time. report form the off-going nurse completed and side rails are elevated times 2.
--- NOTE | 2019-01-24 07:18 | NUR ---
REPORT GIVEN TO ONCOMING NURSE,WALKING ROUNDS DONE.PT RESTING IN BED WITH NO S/S OF DISTRESS
[2019-01-24] MEDS ORDERED: LEVOTHYROXINE SODIUM 75 MCG TAB PO SCH (07:30)
[2019-01-24] MEDS ORDERED: ACETAMINOPHEN 325 MG TAB PO PRN ×2 (07:45)
[2019-01-24 08:37] VITALS: BP 137/67
[2019-01-24] MEDS ORDERED: ASPIRIN 81 MG CHEW TAB PO SCH (09:00)
[2019-01-24] MEDS ORDERED: HYDROCHLOROTHIAZIDE 25 MG TAB PO SCH (09:00)
[2019-01-24] MEDS ORDERED: CLOPIDOGREL BISULFATE 75 MG TAB PO SCH (09:00)
[2019-01-24] MEDS ORDERED: AMLODIPINE BESYLATE 5 MG TAB PO SCH ×2 (09:00)
--- NOTE | 2019-01-24 10:57 | NUR ---
STEPHANIA EXPLAINED TO PT, SIGNED BY PT AND PLACED IN CHART COPY TO PT IN CARE TRANSITIONS FOLDER
[2019-01-24 11:09] VITALS: BP 137/67
--- NOTE | 2019-01-24 11:45 | NUR ---
The pt. has been discharged home post removal of iv cath and discharge instructions were given. The pt was released to family members and is in stable condition.
[2019-01-24 12:45] VITALS: BP 138/68
== END 2019-01-24 12:20 | disposition home or self-care (01) ==
LOC: CATH LAB 19:44 → IMCU 19:45 → MED/SURG 21:40
PROVIDERS: ADMIT Internal Medicine Cardiovascular Disease; ATTEND Internal Medicine Cardiovascular Disease
DX: I83.812 Varicose veins of left lower extremity with pain (principal); I70.219 Atherosclerosis of native arteries of extremities with intermittent claudication, unspecified extremity; Z01.812 Encounter for preprocedural laboratory examination; I10 Essential (primary) hypertension; E78.5 Hyperlipidemia, unspecified; M19.90 Unspecified osteoarthritis, unspecified site; Z83.3 Family history of diabetes mellitus; Z82.49 Family history of ischemic heart disease and other diseases of the circulatory system; Z82.3 Family history of stroke; Z88.8 Allergy status to other drugs, medicaments and biological substances
CPT/HCPCS: 36415; 37226; 75710; 76937; 80053; 85025; 85610; C1725 ×3; C1769 ×4; C1876 ×2; C1887; C2623; G0378 ×2; J1644; J2001; J2250; J7030; Q9967 ×2; 36247; J3010

== ENCOUNTER 2025-04-01 05:19 | Inpatient (IN) | payer MEDICARE ==
[2025-03-31 10:41] LABS: BASOPHILS % 0.4 % (0.0-1.0); EOSINOPHILS % 2.2 % (0.0-6.0); LYMPHOCYTES % 8.8 % (18.0-39.1); MONOCYTES % 7.5 % (4.4-11.3); NEUTROPHILS % 80.7 % (38.7-80.0); RED CELL DISTRIBUTION WIDTH 13.2 % (11.7-14.4)
[2025-03-31 11:24] LABS: EST GLOMERULAR FILTRATION RATE 93.0 ML/MIN (>=60)
[~2025-04-01] VITALS: Ht 188 cm; Wt 81.8 kg
[~2025-04-01 05:19] MED LIST changes: -ASPIRIN 325 MG TAB ONE; -FENTANYL CITRATE/PF 100MCG/2 ML INJ ONE; +FLOMAX0.4 MG PO; -HEPARIN SOD (PORCINE) 1000 UNIT/ML 30ML ONE; -HEPARIN SOD/SOD CHLORIDE 1,000 ML ONE; -HEPARIN SOD/SOD CHLORIDE 2,000 ML ONE; -IOPAMIDOL 300MG/ML 100 ML INFUS..BTL IV ONE; -IOPAMIDOL 370 MG/ML 200 ML INFUS..BTL INJ ONE; +LEVOTHYROXINE88 MCG PO; -LIDOCAINE HCL 2% LOCAL 20 ML VIAL ONE; +LIPITOR20 MG PO; -MIDAZOLAM HCL 2 MG/2 ML VIAL ONE; -NITROGLYCERIN/D5W 200 MCG/ML 250 ML ONE; -SODIUM CHLORIDE 0.9% 1000ML 1,000 ML ONE; +TERBINAFINE HC250 MG PO; -TICAGRELOR 90 MG TABLET ONE; -VERAPAMIL HCL 2.5 MG/ML 2 ML VIAL ONE
[2025-04-01 06:36] LABS: EST GLOMERULAR FILTRATION RATE 96.0 ML/MIN (>=60)
[2025-04-01] MEDS: SODIUM CHLORIDE 0.9% 1000ML 1,000 ML ONE (06:50)
[2025-04-01] MEDS: CEFTRIAXONE 1 GM VIAL ONE (06:51)
[2025-04-01] MEDS: GENTAMICIN 80MG/NS 100 ML 200 ML IV ONE (06:51)
[2025-04-01] MEDS ORDERED: FENTANYL CITRATE/PF 100MCG/2 ML INJ ONE ×2 (06:58→08:04)
[2025-04-01] MEDS ORDERED: LIDOCAINE HCL 2% LOCAL INJ 5 ML SDV VIAL INJ ONE (06:58)
[2025-04-01] MEDS ORDERED: ONDANSETRON HCL INJ 2MG/ML 2ML 2 MG/ML VIAL ONE (06:58)
[2025-04-01] MEDS ORDERED: PROPOFOL IV EMULSION 10 MG/ML 20 ML VIAL ONE (06:58)
[2025-04-01] MEDS ORDERED: MIDAZOLAM HCL 2 MG/2 ML VIAL ONE (07:00)
[2025-04-01] MEDS ORDERED: SODIUM CHLORIDE 0.9% 100 ML ONE (07:04)
[2025-04-01] MEDS ORDERED: PHENYLEPHRINE HCL 1% 10 MG/ML VIAL ONE (07:04)
[2025-04-01] MEDS ORDERED: ROCURONIUM BROMIDE 1 ML IV ONE (08:04)
[2025-04-01] MEDS ORDERED: ACETAMINOPHEN 1000 MG/100 ML 100 ML IV ONE (08:04)
[2025-04-01] MEDS ORDERED: ONDANSETRON HCL INJ 2MG/ML 2ML 2 MG/ML VIAL IV PRN (08:45)
[2025-04-01] MEDS ORDERED: DIPHENHYDRAMINE HCL 25 MG CAP PO PRN (08:45)
[2025-04-01 09:05] LABS: BASOPHILS % 0.3 % (0.0-1.0); EOSINOPHILS % 1.8 % (0.0-6.0); LYMPHOCYTES % 11.4 % (18.0-39.1); MONOCYTES % 7.1 % (4.4-11.3); NEUTROPHILS % 78.9 % (38.7-80.0); RED CELL DISTRIBUTION WIDTH 13.1 % (11.7-14.4)
[2025-04-01] MEDS: FENTANYL CITRATE/PF 100MCG/2 ML INJ ONE (09:10)
[2025-04-01 09:39] LABS: EST GLOMERULAR FILTRATION RATE 98.0 ML/MIN (>=60)
[2025-04-01] MEDS ORDERED: NEOSTIGMINE 1 MG/ML 10ML VIAL ONE (13:00)
[2025-04-01] MEDS ORDERED: SEVOFLURANE INHAL SOLN 250 ML PEN BTL ONE (13:00)
[2025-04-01] MEDS: SENNA-S TABLET PO SCH (13:15)
[2025-04-01 13:19] VITALS: BP 120/58; PULSE 59; RESP 16; TEMP 95; O2SAT 97
[2025-04-01] MEDS: SODIUM CHLORIDE 0.9% 1000ML 1,000 ML IV SCH (14:29)
[2025-04-01 15:30] VITALS: BP 120/58; PULSE 59; RESP 16; TEMP 95; O2SAT 97
[2025-04-01] MEDS: ACETAMINOPHEN 1000 MG/100 ML IV PRN (16:46)
[2025-04-01 16:47] VITALS: BP 129/62; PULSE 55; RESP 16; TEMP 98.1; O2SAT 97
[2025-04-01 18:59] VITALS: PULSE 55; RESP 12; O2SAT 97
[2025-04-01 20:00] VITALS: BP 123/58; PULSE 53; RESP 17; TEMP 98.7; O2SAT 96
[2025-04-01 21:26] VITALS: BP 123/58; PULSE 53; RESP 17; TEMP 98.7; O2SAT 96
[2025-04-02] VITALS (11 sets, daily range): BP systolic 124–150; BP diastolic 57–69; PULSE 59–83; RESP 16–20; TEMP 98–99.6; O2SAT 97–99
[2025-04-02 07:04] LABS: BASOPHILS % 0.1 % (0.0-1.0); EOSINOPHILS % 1.3 % (0.0-6.0); LYMPHOCYTES % 0.8 % (18.0-39.1); MONOCYTES % 5.8 % (4.4-11.3); NEUTROPHILS % 91.3 % (38.7-80.0); RED CELL DISTRIBUTION WIDTH 13.4 % (11.7-14.4)
[2025-04-02 07:29] LABS: EST GLOMERULAR FILTRATION RATE 88.0 ML/MIN (>=60)
[2025-04-02] MEDS: ACETAMINOPHEN/CODEINE 300MG - 30MG TAB PO PRN (15:04)
[2025-04-03] VITALS (10 sets, daily range): BP systolic 131–167; BP diastolic 55–76; PULSE 58–69; RESP 16–18; TEMP 97.3–99.4; O2SAT 94–96
[2025-04-03] MEDS: AMLODIPINE BESYLATE 5 MG TAB PO SCH (00:24)
[2025-04-03] MEDS: LEVOTHYROXINE SODIUM 88 MCG TAB PO SCH (05:38)
[2025-04-03 06:17] LABS: BASOPHILS % 0.1 % (0.0-1.0); EOSINOPHILS % 3.2 % (0.0-6.0); LYMPHOCYTES % 4.3 % (18.0-39.1); MONOCYTES % 10.3 % (4.4-11.3); NEUTROPHILS % 81.5 % (38.7-80.0); RED CELL DISTRIBUTION WIDTH 13.4 % (11.7-14.4)
[2025-04-03 06:58] LABS: EST GLOMERULAR FILTRATION RATE 97.0 ML/MIN (>=60)
[2025-04-03] MEDS: TAMSULOSIN HCL 0.4 MG CAP PO SCH (08:49)
[2025-04-03] MEDS: HYDRALAZINE HCL 25 MG TAB PO PRN (12:35)
[2025-04-04] VITALS (10 sets, daily range): BP systolic 130–151; BP diastolic 59–90; PULSE 58–98; RESP 16–20; TEMP 98.1–98.8; O2SAT 95–100
[2025-04-04 06:59] LABS: BASOPHILS % 0.1 % (0.0-1.0); EOSINOPHILS % 3.1 % (0.0-6.0); LYMPHOCYTES % 4.3 % (18.0-39.1); MONOCYTES % 9.2 % (4.4-11.3); NEUTROPHILS % 82.8 % (38.7-80.0); RED CELL DISTRIBUTION WIDTH 13.3 % (11.7-14.4)
[2025-04-04 07:48] LABS: EST GLOMERULAR FILTRATION RATE 96.0 ML/MIN (>=60)
[2025-04-04] MEDS: PHENAZOPYRIDINE HCL 100 MG TAB PO PRN (09:12)
[2025-04-04] MEDS: ACETAMINOPHEN 325 MG TAB PO PRN (21:04)
[2025-04-05] VITALS (7 sets, daily range): BP systolic 143–160; BP diastolic 62–73; PULSE 52–69; RESP 16–18; TEMP 97.6–98.4; O2SAT 95–99
[2025-04-05 08:17] LABS: BASOPHILS % 0.3 % (0.0-1.0); EOSINOPHILS % 4.0 % (0.0-6.0); LYMPHOCYTES % 4.1 % (18.0-39.1); MONOCYTES % 8.0 % (4.4-11.3); NEUTROPHILS % 83.2 % (38.7-80.0); RED CELL DISTRIBUTION WIDTH 13.1 % (11.7-14.4)
[2025-04-05 08:23] LABS: EST GLOMERULAR FILTRATION RATE 99.0 ML/MIN (>=60)
== END 2025-04-05 19:00 | disposition home or self-care (01) | DRG 713 ==
LOC: OR 05:19 → PACU V 08:44 → MED/SURG3 12:22
PROVIDERS: ADMIT Internal Medicine; ATTEND Internal Medicine
PROC: 0T7D8ZZ Dilation of Urethra, Via Natural or Artificial Opening Endoscopic (ICD-10-PCS; 2025-04-01)
PROC: 0T9B70Z Drainage of Bladder with Drainage Device, Via Natural or Artificial Opening (ICD-10-PCS; 2025-04-01)
PROC: BT141ZZ Fluoroscopy of Kidneys, Ureters and Bladder using Low Osmolar Contrast (ICD-10-PCS; 2025-04-01)
PROC: 0V508ZZ Destruction of Prostate, Via Natural or Artificial Opening Endoscopic (ICD-10-PCS; principal; 2025-04-01 07:11)
DX: N40.1 Benign prostatic hyperplasia with lower urinary tract symptoms (principal); G92.8 Other toxic encephalopathy; N39.0 Urinary tract infection, site not specified; N13.8 Other obstructive and reflux uropathy; R31.0 Gross hematuria; R33.8 Other retention of urine; I10 Essential (primary) hypertension; E78.5 Hyperlipidemia, unspecified; E03.9 Hypothyroidism, unspecified; I73.9 Peripheral vascular disease, unspecified; N35.911 Unspecified urethral stricture, male, meatal; Z79.02 Long term (current) use of antithrombotics/antiplatelets; Z79.890 Hormone replacement therapy; Z96.0 Presence of urogenital implants
CPT/HCPCS: 36415; 71046; 74420; 80048; 83735; 85025; 87086; 94799; C1758; J0696; J1580; J2003; J2250; J2371; J2405; J2710; J7030; J7050